=== PATIENT | female | born 1940 | race Caucasian/White ===

== ENCOUNTER 2016-11-04 06:08 | Day surgery (SDC) | payer MEDICARE ==
[2016-11-04] MEDS ORDERED: LACTATED RINGERS 1,000 ML IV ONE (06:56)
[2016-11-04] MEDS ORDERED: fentaNYL 100 MCG/2 ML VIAL IVP ONE (07:26)
[2016-11-04] MEDS ORDERED: MIDAZOLAM 2 MG/2 ML VIAL IVP ONE (07:26)
[2016-11-04 09:31] VITALS: BP 140/77
== END 2016-11-04 06:09 | disposition home or self-care (01) ==
LOC: SDS 06:08
PROVIDERS: ATTEND Surgery
PROC: 0DBE8ZZ Excision of Large Intestine, Via Natural or Artificial Opening Endoscopic (ICD-10-PCS; principal; 2016-11-04 07:30)
DX: Z87.19 Personal history of other diseases of the digestive system (principal); E11.9 Type 2 diabetes mellitus without complications; M06.9 Rheumatoid arthritis, unspecified; G47.30 Sleep apnea, unspecified; Z87.891 Personal history of nicotine dependence
CPT/HCPCS: 45380; J7120

== ENCOUNTER 2016-11-29 15:32 | Outpatient (CLI) | payer OTHER ==
[2016-11-29 16:14] LABS: BASOPHILS # (AUTO) 0.1 10^3/uL (0.0-0.1); BASOPHILS % (AUTO) 1.3 %; EOSINOPHILS # (AUTO) 0.5 10^3/uL (0.0-0.7); EOSINOPHILS % (AUTO) 4.3 %; HCT - HEMATOCRIT 39.7 % (37.0-47.0); HGB - HEMOGLOBIN 12.9 g/dL (12.0-16.0); LYMPHOCYTES # (AUTO) 1.6 10^3/uL (1.5-3.5); LYMPHOCYTES % (AUTO) 14.3 %; MEAN CORPUSCULAR HEMOGLOBIN 25.8 pg (27.0-31.0); MEAN CORPUSCULAR HGB CONC 32.6 g/dL (32.0-36.0); MEAN CORPUSCULAR VOLUME 79.3 fL (81.0-99.0); MEAN PLATELET VOLUME 7.3 fL (7.9-10.8); MONOCYTES # (AUTO) 0.7 10^3/uL (0.0-1.0); MONOCYTES % (AUTO) 6.5 %; NEUTROPHILS # (AUTO) 8.3 10^3/uL (1.5-6.6); NEUTROPHILS % (AUTO) 73.6 %; RED BLOOD COUNT 5.01 10^6/uL (4.20-5.40); RED CELL DISTRIBUTION WIDTH 15.9 % (12.0-15.0); UNCORRECTED WHITE BLOOD COUNT 11.3 x10^3/uL; WHITE BLOOD COUNT 11.3 x10^3/uL (4.8-10.8)
[2016-11-29 16:21] LABS: ALBUMIN/GLOBULIN RATIO 1.2 (1.0-2.2); BILIRUBIN,TOTAL 0.4 mg/dL (0.2-1.0); CALCIUM 9.1 mg/dL (8.5-10.3); CREATININE 0.6 mg/dL (0.4-1.0); POTASSIUM 4.1 mmol/L (3.5-5.0); TOTAL PROTEIN 7.1 g/dL (6.7-8.2)
== END 2016-11-29 15:33 | disposition home or self-care (01) ==
LOC: LAB 15:32
PROVIDERS: ATTEND Orthopaedic Surgery
DX: Z01.812 Encounter for preprocedural laboratory examination (principal); M17.11 Unilateral primary osteoarthritis, right knee
CPT/HCPCS: 36415; 80053; 85025; 87640

== ENCOUNTER 2016-12-14 07:09 | Inpatient (IN) | payer MEDICARE ==
[~2016-12-14 07:09] MED LIST: ceFAZolin 2 GM/50 ML 2 GM/50 ML BAG IV ONE
[2016-12-14] MEDS ORDERED: LACTATED RINGERS 1,000 ML IV ONE ×2 (08:16→10:34)
[2016-12-14] MEDS ORDERED: KETOROLAC 30 MG/ML VIAL IVP ONE (09:20)
[2016-12-14] MEDS ORDERED: ONDANSETRON 4 MG/2 ML VIAL IVP ONE (09:20)
[2016-12-14] MEDS ORDERED: PROPOFOL 200 MG/20 ML VIAL IVP ONE (09:20)
[2016-12-14] MEDS ORDERED: ACETAMINOPHEN 1,000 MG/100 ML 100 ML IV ONE (09:20)
[2016-12-14] MEDS ORDERED: MIDAZOLAM 2 MG/2 ML VIAL IVP ONE (09:20)
[2016-12-14] MEDS ORDERED: fentaNYL 100 MCG/2 ML VIAL IVP ONE (09:20)
[2016-12-14] MEDS ORDERED: ePHEDrine 50 MG/ML VIAL IVP ONE (09:20)
[2016-12-14] MEDS ORDERED: MORPHINE PF 5 MG/10 ML AMP EP ONE (09:20)
[2016-12-14] MEDS ORDERED: LIDOCAINE-MPF 2% 5 ML VIAL IM ONE (09:20)
[2016-12-14] MEDS ORDERED: TRANEXAMIC ACID 1,000 MG/10 ML VIAL IV ONE (09:20)
[2016-12-14] MEDS ORDERED: BUPIVACAINE 0.5% PF 30 ML VIAL INFIL ONE (09:23)
[2016-12-14] MEDS ORDERED: MORPHINE PF 10 MG/10 ML AMP SUBQ ONE (09:23)
[2016-12-14] MEDS ORDERED: ROPIVACAINE 0.2% PF 20 ML AMPULE SUBQ ONE (09:23)
[2016-12-14] MEDS ORDERED: EPINEPHrine 1 MG/ML AMP SUBQ ONE (09:23)
[2016-12-14] MEDS ORDERED: KETOROLAC 30 MG/ML VIAL IM ONE (09:26)
[2016-12-14] MEDS ORDERED: SENNA 8.6 MG TABLET PO PRN (10:59)
[2016-12-14] MEDS ORDERED: ONDANSETRON 4 MG/2 ML VIAL IVP PRN (10:59)
[2016-12-14] MEDS ORDERED: MORPHINE 2 MG/ML SYRINGE IVP PRN (10:59)
[2016-12-14] MEDS ORDERED: ACETAMINOPHEN 1,000 MG/100 ML 100 ML IV PRN (10:59)
[2016-12-14] MEDS ORDERED: BISACODYL 10 MG SUPP PR PRN (10:59)
--- NOTE | 2016-12-14 10:59 | OPERATIVE REPORT ---
Operative Report - General Admit Date: 12/14/16 Procedure Date: 12/14/16 Planned Procedure: right TKA Pre-Op Diagnosis: DJD right knee Procedure Performed: Right TKA Post Op Diagnosis: same - Procedure Note Primary Surgeon: lida Anesthesia Provider: Reji Anesthesia Technique: Combo spinal/epidural Estimated Blood Loss (mL): 80
[2016-12-14] MEDS: SODIUM CHLORIDE FLUSH 0.9% 10 ML SYRINGE IVP SCH ×2 (11:55→22:08)
[2016-12-14] MEDS: PROCHLORPERAZINE 10 MG/2 ML VIAL IVP PRN ×2 (12:24→22:08)
[2016-12-14] MEDS: SODIUM CHLORIDE 0.45% 1,000 ML IV SCH (12:29)
--- NOTE | 2016-12-14 13:10 | XRAY Report ---
TWO-VIEW RIGHT KNEE: 12/14/2016 CLINICAL INDICATION: Post-op knee replacement. COMPARISON: 07/02/2015, 10/14/2016 FINDINGS: Frontal and lateral views of the right knee demonstrate a right total knee replacement in place. There is no evidence of fracture or hardware complication. Subcutaneous gas is noted. IMPRESSION: EXPECTED POSTOPERATIVE APPEARANCE OF RIGHT KNEE REPLACEMENT. JOB #: [id number] EXT JOB #:[id number]
[2016-12-14] MEDS: ceFAZolin 2 GM/50 ML 2 GM/50 ML BAG IV SCH ×2 (15:51→23:53)
[2016-12-14] MEDS: SODIUM CHLORIDE FLUSH 0.9% 10 ML SYRINGE IVP PRN ×2 (16:37→22:08)
--- NOTE | 2016-12-14 16:45 | OPERATIVE REPORT ---
DATE OF SURGERY: 12/14/2016 00:00:00 PREOPERATIVE DIAGNOSIS: Right knee osteoarthritis. POSTOPERATIVE DIAGNOSIS: NAME OF PROCEDURE: Right total knee arthroplasty. SURGEON: Severo Lee MD ANESTHESIA: Spinal by Kofi Mendoza. INDICATIONS FOR SURGERY: The patient is a 76-year-old female with progressive osteoarthritis of her r ight knee, who had failed nonoperative treatment and presented for a total knee arthroplasty. FINDINGS AT SURGERY: The patient had diffuse degenerative arthritis of her right knee, with synovial effusion and mild synovitis of the knee joint. DESCRIPTION OF OPERATIVE PROCEDURE: The patient was taken to the operating room and was given a spina l anesthetic. Once she had been given sedation and IV antibiotics, her knee was sterilely prepped and draped in the standard fashion. The procedure was done under a tourniquet pressure of 300 mmHg. The patient's limb was exsanguinated and the tourniquet inflated. The knee was approached through a media l parapatellar incision of about 8 inches in length. The incision was deepened down to the fascial la darian, which was incised in a medial retinacular approach, exposing the intra-articular knee joint. In flexion with the knee slid to the side, the anterior horns of the menisci were able to be excised and osteophytes removed. An intramedullary hole was made in the femur for placement of a distal femoral cutting block. This cut was then made, after which the distal femur was sized to a Persona size 6 imp lant and the 4-in-1 cutting block was applied and those cuts made. The tibia was then subluxated ante riorly with excision of the ACL and most of the PCL. This exposed the plateau for a complete resectio n of the menisci. The proximal tibia cut was made with the external alignment guide and appropriate s jessy and alignment accounted for. Once the cut was made, the tibia sized to a C implant, which was th en drilled and broached for a stemmed component. Trial reduction was made off of the base plate with poly inserts most appropriate for a size 13 poly. After trial reduction was performed, the implants w ere removed. The knee was flushed and irrigated. The patella had been resected down from 22 mm down t o approximately 15, for replacement with a 29 mm diameter medialized poly component. The components w ere then sequentially cemented in place, first with the tibial base plate, followed by the femur,; th en inserting the poly, followed by cementing in of the patella. All excess cement was carefully remov ed. The cement was allowed to harden. The patient's tourniquet was then deflated, and there was very little bleeding. Injection was placed periarticular with an infusion of both local anesthetic and Tor adol diluted with saline, and this injection was diffusely placed in the knee and tolerated. Followin g this, the knee was irrigated and flushed. Cautery controlled minor bleeders. Closure was undertaken with FiberWire closure of the medial retinaculum, Vicryl closure of the subcutaneous tissue and the skin with a Monocryl running closure. Sterile dressings were applied. The patient was then taken to [facility] recovery room in stable condition. ESTIMATED BLOOD LOSS: Minimal. COMPLICATIONS: None. SPONGE AND NEEDLE COUNTS: Correct. JOB #: [id number] EXT JOB #:[id number]
[2016-12-14] MEDS: ASPIRIN 325 MG TABLET PO SCH (17:01)
[2016-12-15] MEDS: SODIUM CHLORIDE 0.45% 1,000 ML IV SCH (00:04)
[2016-12-15 05:14] LABS: HCT - HEMATOCRIT 34.9 % (37.0-47.0); HGB - HEMOGLOBIN 11.2 g/dL (12.0-16.0)
[2016-12-15 05:20] LABS: CALCIUM 8.3 mg/dL (8.5-10.3); CREATININE 0.6 mg/dL (0.4-1.0); POTASSIUM 4.5 mmol/L (3.5-5.0)
[2016-12-15] MEDS: SODIUM CHLORIDE FLUSH 0.9% 10 ML SYRINGE IVP SCH ×3 (06:02→21:36)
--- NOTE | 2016-12-15 07:37 | PROVIDER PROGRESS NOTE ---
Subjective - General Admit Date: 12/14/16 Procedure Date: 12/14/16 Post Op Days: 1 Procedure Performed: right TKA - Review of Systems Wound/Incisions: positive: Healing well Musculoskeletal: positive: Joint pain Psychiatric: positive: No symptoms Objective - Patient Data Reviewed Vital Signs: Yes Vital Signs: Vital Signs x48h Temp Pulse Resp BP Pulse Ox 12/15/16 04:55 36.4 C L 84 16 121/58 L 94 12/14/16 23:45 36.5 C 72 12 132/60 H 93 Weight: Weight 12/13/16 12/14/16 12/15/16 23:59 23:59 23:59 Weight (kg) 108 kg Intake & Output: Intake and Output Totals x24h 12/13/16 12/14/16 12/15/16 23:59 23:59 23:59 Intake Total 2000 150 Output Total 525 300 Balance 1475 -150 - Lab Results Lab Results: 12/15/16 04:52 12/15/16 04:52 Other Lab Results: Lab Results x24hrs 12/15/16 12/15/16 12/14/16 Range/Units 04:52 04:52 11:24 Hgb 11.2 L (12.0-16.0) g/dL Hct 34.9 L (37.0-47.0) % Sodium 136 (135-145) mmol/L Potassium 4.5 (3.5-5.0) mmol/L Chloride 101 (101-111) mmol/L Carbon Dioxide 26 (21-32) mmol/L Anion Gap 9.0 (6-13) BUN 28 H (6-20) mg/dL Creatinine 0.6 (0.4-1.0) mg/dL Estimated GFR (MDRD) 98 (>89) Glucose 141 H (70-100) mg/dL POC Whole Bld Glucose 133 H (70 - 100) mg/dL Calcium 8.3 L (8.5-10.3) mg/dL 12/14/16 Range/Units 08:06 Hgb (12.0-16.0) g/dL Hct (37.0-47.0) % Sodium (135-145) mmol/L Potassium (3.5-5.0) mmol/L Chloride (101-111) mmol/L Carbon Dioxide (21-32) mmol/L Anion Gap (6-13) BUN (6-20) mg/dL Creatinine (0.4-1.0) mg/dL Estimated GFR (MDRD) (>89) Glucose (70-100) mg/dL POC Whole Bld Glucose 120 H (70 - 100) mg/dL Calcium (8.5-10.3) mg/dL - Imaging Results Radiology Imaging: positive: EMP read indepedently - Current Medications Current Medications: Current Medications Generic Name Dose Route Start Last Admin Trade Name Freq PRN Reason Stop Dose Admin Aspirin 325 mg 12/14/16 17:00 12/14/16 17:01 Annamaria PO 325 mg BIDWM AGUSTÍN Administration Sodium Chloride 1,000 mls @ 100 mls/hr 12/14/16 11:00 12/15/16 00:04 Normal Saline 0.45% IV 100 mls/hr .Q10H AGUSTÍN Administration Ondansetron HCl 4 mg 12/14/16 10:59 12/14/16 16:36 Zofran Inj IVP 4 mg Q6HR PRN Administration Nausea / Vomiting Prochlorperazine Edisylate 10 mg 12/14/16 10:59 12/14/16 22:08 Compazine Inj IVP 10 mg Q6HR PRN Administration Nausea / Vomiting Sodium Chloride 10 ml 12/14/16 14:00 12/15/16 06:02 Normal Saline Flush 0.9% IVP Not Given Q8HR AGUSTÍN Sodium Chloride 10 ml 12/14/16 10:59 12/14/16 22:08 Normal Saline Flush 0.9% IVP 10 ml PRN PRN Administration NEEDED PER PROVIDER ORDERS - Physical Exam Wound/Incisions: positive: Dressing dry and intact General Appearance: positive: No acute distress Skin: positive: Warm, Dry Extremities: positive: Joint swelling Neurologic/Psychiatric: positive: Oriented x3, CN's nml (2-12), Motor nml, Sensation nml, Mood/affect nml Impression/Plan - Problem List Problem List: POD #1 Pt is progressing well with minimal pain, no nausea. Ready for PT to begin. Will sit at bedside, and begin walker use.
[2016-12-15] MEDS: oxyCOD/ACETAMIN 5 MG/325 MG TABLET PO PRN ×4 (08:43→20:33)
[2016-12-15] MEDS: ASPIRIN 325 MG TABLET PO SCH ×2 (10:24→10:28)
[2016-12-15] MEDS: ACETAMINOPHEN 325 MG TABLET PO PRN ×2 (10:24→15:40)
[2016-12-15] MEDS: SENNA 8.6 MG TABLET PO SCH (14:53)
[2016-12-15] MEDS: DOCUSATE SODIUM 250 MG CAPSULE PO SCH (14:53)
[2016-12-15] MEDS ORDERED: DOCUSATE SODIUM 250 MG CAPSULE PO ONE (14:56)
[2016-12-15] MEDS ORDERED: SENNA 8.6 MG TABLET ONE (14:56)
[2016-12-16] MEDS: oxyCOD/ACETAMIN 5 MG/325 MG TABLET PO PRN ×6 (00:55→22:33)
[2016-12-16] MEDS: SODIUM CHLORIDE FLUSH 0.9% 10 ML SYRINGE IVP SCH ×3 (05:14→21:16)
[2016-12-16] MEDS ORDERED: DOCUSATE SODIUM 250 MG CAPSULE PO SCH (09:00)
[2016-12-16] MEDS ORDERED: SENNA 8.6 MG TABLET PO SCH (09:00)
[2016-12-16] MEDS: DOCUSATE SODIUM 250 MG CAPSULE PO SCH (09:29)
[2016-12-16] MEDS: SENNA 8.6 MG TABLET PO SCH (09:30)
--- NOTE | 2016-12-16 10:20 | PROVIDER PROGRESS NOTE ---
Subjective - General Admit Date: 12/14/16 Procedure Date: 12/14/16 Post Op Days: 2 Procedure Performed: right TKA - Review of Systems Wound/Incisions: positive: Dressing dry and intact Gastrointestinal: positive: No symptoms Genitourinary: positive: No symptoms Musculoskeletal: positive: Joint pain Psychiatric: positive: No symptoms Objective - Patient Data Reviewed Vital Signs: Yes Vital Signs: Vital Signs x48h Temp Pulse Resp BP Pulse Ox 12/16/16 08:32 36.9 C 81 18 156/72 H 96 12/16/16 05:00 37.7 C H 88 18 157/67 H 94 Weight: Weight 12/14/16 12/15/16 12/16/16 23:59 23:59 23:59 Weight (kg) 108 kg Intake & Output: Intake and Output Totals x24h 12/14/16 12/15/16 12/16/16 23:59 23:59 23:59 Intake Total 1999 2888 750 Output Total 525 300 1 Balance 5124 5770 749 - Lab Results Lab Results: 12/15/16 04:52 12/15/16 04:52 - Current Medications Current Medications: Current Medications Generic Name Dose Route Start Last Admin Trade Name Freq PRN Reason Stop Dose Admin Acetaminophen 650 - 975 mg 12/14/16 10:59 12/15/16 15:40 Tylenol PO 650 mg Q4HR PRN Administration PAIN Docusate Sodium 250 - 500 mg 12/15/16 14:49 12/16/16 09:29 Colace 250mg Capsule PO 500 mg DAILY AGUSTÍN Administration Ondansetron HCl 4 mg 12/14/16 10:59 12/14/16 16:36 Zofran Inj IVP 4 mg Q6HR PRN Administration Nausea / Vomiting Oxycodone/Acetaminophen 1 tab 12/14/16 10:59 12/16/16 09:30 Percocet 5 Mg/325 Mg PO 1 tab Q4HR PRN Administration PAIN Prochlorperazine Edisylate 10 mg 12/14/16 10:59 12/14/16 22:08 Compazine Inj IVP 10 mg Q6HR PRN Administration Nausea / Vomiting Senna 8.6 - 17.2 mg 12/15/16 14:49 12/16/16 09:30 Senokot PO 17.2 mg DAILY AGUSTÍN Administration Sodium Chloride 10 ml 12/14/16 14:00 12/16/16 05:14 Normal Saline Flush 0.9% IVP Not Given Q8HR AGUSTÍN Sodium Chloride 10 ml 12/14/16 10:59 12/14/16 22:08 Normal Saline Flush 0.9% IVP 10 ml PRN PRN Administration NEEDED PER PROVIDER ORDERS - Physical Exam Wound/Incisions: positive: Dressing dry and intact General Appearance: positive: No acute distress Respiratory: positive: No respiratory distress Abdomen: positive: Non-tender Skin: positive: Color nml, No rash Neurologic/Psychiatric: positive: Motor nml, Sensation nml, Mood/affect nml Impression/Plan - Problem List Problem List: POD #2 Pt is doing well with decreasing pain. Plan more PT today. The Pt is advised by her eye DrMarisol to avoid any type of Anticoagulant. Will have to mobilize, and use mechanical measures (foot pumps).
[2016-12-16] MEDS: ACETAMINOPHEN 325 MG TABLET PO PRN (11:47)
[2016-12-17] MEDS: ACETAMINOPHEN 325 MG TABLET PO PRN (00:43)
[2016-12-17] MEDS: oxyCOD/ACETAMIN 5 MG/325 MG TABLET PO PRN ×2 (04:09→08:50)
[2016-12-17] MEDS: SODIUM CHLORIDE FLUSH 0.9% 10 ML SYRINGE IVP SCH (07:03)
--- NOTE | 2016-12-17 07:24 | Discharge Plan ---
Discharge Plan Disposition: 01 Home, Self Care Condition: Good Prescriptions: oxyCODONE/ACET 5/325 [Percocet 5 mg/325 mg] 1 tab PO Q4HR PRN #30 tablet PRN Reason: Pain Bisacodyl Supp [Dulcolax Supp] 10 mg VT Q12H PRN #10 supp PRN Reason: Constipation Senna [Senokot] 8.6 - 17.2 mg PO DAILY #20 tablet Diet: Regular Activity Restrictions: walker use Shower Restrictions: Yes (knee covered. shower chair) Driving Restrictions: Yes (no driving) Assistance Devices: Walker Weight Bearing: Full Weight Follow-Up Care: Outpatient Rehab - PT (referral in place for next week) No Smoking: If you smoke, Please STOP! Call for help. Follow-up with: Luis A Wakefield DO [Primary Care Provider] - Severo Lee MD [Provider Admit Priv/Credential] -
[2016-12-17] MEDS: DOCUSATE SODIUM 250 MG CAPSULE PO SCH (08:50)
[2016-12-17 08:51] VITALS: BP 154/83
[2016-12-17] MEDS: SENNA 8.6 MG TABLET PO SCH (08:51)
== END 2016-12-17 09:35 | disposition home or self-care (01) | DRG 470 ==
LOC: MS2 07:09
PROVIDERS: ADMIT Orthopaedic Surgery; ATTEND Orthopaedic Surgery
PROC: 0SRC069 Replacement of Right Knee Joint with Oxidized Zirconium on Polyethylene Synthetic Substitute, Cemented, Open Approach (ICD-10-PCS; principal; 2016-12-14 08:30)
DX: M17.11 Unilateral primary osteoarthritis, right knee (principal); Z68.41 Body mass index [BMI] 40.0-44.9, adult; I10 Essential (primary) hypertension; E66.9 Obesity, unspecified; E11.9 Type 2 diabetes mellitus without complications; M06.9 Rheumatoid arthritis, unspecified; G47.30 Sleep apnea, unspecified; H35.30 Unspecified macular degeneration; E78.5 Hyperlipidemia, unspecified; I34.1 Nonrheumatic mitral (valve) prolapse; Z87.19 Personal history of other diseases of the digestive system
CPT/HCPCS: 36415; 80048; 85014; 85018

== ENCOUNTER 2017-05-19 10:03 | Outpatient (CLI) | payer MEDICARE ==
[2017-05-19 10:22] LABS: BASOPHILS % (AUTO) 0.4 %; EOSINOPHILS # (AUTO) 0.2 10^3/uL (0.0-0.7); EOSINOPHILS % (AUTO) 1.4 %; HGB - HEMOGLOBIN 12.4 g/dL (12.0-16.0); LYMPHOCYTES # (AUTO) 1.3 10^3/uL (1.5-3.5); LYMPHOCYTES % (AUTO) 11.7 %; MEAN CORPUSCULAR HEMOGLOBIN 24.7 pg (27.0-31.0); MEAN CORPUSCULAR HGB CONC 32.3 g/dL (32.0-36.0); MEAN CORPUSCULAR VOLUME 76.4 fL (81.0-99.0); MEAN PLATELET VOLUME 7.2 fL (7.9-10.8); MONOCYTES # (AUTO) 0.5 10^3/uL (0.0-1.0); MONOCYTES % (AUTO) 4.4 %; NEUTROPHILS # (AUTO) 9.1 10^3/uL (1.5-6.6); NEUTROPHILS % (AUTO) 82.1 %; PLT - PLATELET COUNT 341 10^3/uL (130-450); RED BLOOD COUNT 5.03 10^6/uL (4.20-5.40); RED CELL DISTRIBUTION WIDTH 15.8 % (12.0-15.0); WHITE BLOOD COUNT 11.1 x10^3/uL (4.8-10.8)
[2017-05-19 10:34] LABS: ALBUMIN 3.7 g/dL (3.2-5.5); ALBUMIN/GLOBULIN RATIO 1.3 (1.0-2.2); BILIRUBIN,TOTAL 0.6 mg/dL (0.2-1.0); CALCIUM 8.5 mg/dL (8.5-10.3); CREATININE 0.6 mg/dL (0.4-1.0); TOTAL PROTEIN 6.6 g/dL (6.7-8.2)
[2017-05-19 10:42] LABS: HB2 TOTAL 13.6 g/dL; HEMOGLOBIN A1C 0.78 g/dL; HEMOGLOBIN A1C % 7.4 % (4.6-6.2)
[2017-05-21 18:47] LABS: ANA SCREEN POSITIVE (NEGATIVE)
== END 2017-05-19 10:04 | disposition home or self-care (01) ==
LOC: LAB 10:03
PROVIDERS: ATTEND Physician Assistant
DX: L29.8 Other pruritus (principal); I83.10 Varicose veins of unspecified lower extremity with inflammation; D48.5 Neoplasm of uncertain behavior of skin; Z71.89 Other specified counseling; Z79.899 Other long term (current) drug therapy
CPT/HCPCS: 36415; 80053; 83036; 85025; 86038; 86039

== ENCOUNTER 2017-08-30 06:45 | Outpatient (CLI) | payer MEDICARE ==
[2017-08-30 07:21] LABS: BASOPHILS % (AUTO) 0.1 %; EOSINOPHILS # (AUTO) 0.3 10^3/uL (0.0-0.7); EOSINOPHILS % (AUTO) 3.5 %; HGB - HEMOGLOBIN 12.8 g/dL (12.0-16.0); LYMPHOCYTES # (AUTO) 2.2 10^3/uL (1.5-3.5); LYMPHOCYTES % (AUTO) 22.4 %; MEAN CORPUSCULAR HEMOGLOBIN 25.2 pg (27.0-31.0); MEAN CORPUSCULAR HGB CONC 33.2 g/dL (32.0-36.0); MEAN CORPUSCULAR VOLUME 75.9 fL (81.0-99.0); MEAN PLATELET VOLUME 7.8 fL (7.9-10.8); MONOCYTES # (AUTO) 0.6 10^3/uL (0.0-1.0); MONOCYTES % (AUTO) 6.2 %; NEUTROPHILS # (AUTO) 6.5 10^3/uL (1.5-6.6); NEUTROPHILS % (AUTO) 67.8 %; PLT - PLATELET COUNT 363 10^3/uL (130-450); RED BLOOD COUNT 5.08 10^6/uL (4.20-5.40); RED CELL DISTRIBUTION WIDTH 16.3 % (12.0-15.0); WHITE BLOOD COUNT 9.6 x10^3/uL (4.8-10.8)
[2017-08-30 07:30] LABS: ALBUMIN 3.8 g/dL (3.2-5.5); ALBUMIN/GLOBULIN RATIO 1.2 (1.0-2.2); ALKALINE PHOSPHATASE 77 IU/L (42-121); ALT ALANINE AMINOTRANSFERASE 25 IU/L (10-60); AST ASPARTATE AMINOTRANSFERASE 20 IU/L (10-42); BILIRUBIN,TOTAL 0.3 mg/dL (0.2-1.0); BUN - BLOOD UREA NITROGEN 18 mg/dL (6-20); CALCIUM 9.3 mg/dL (8.5-10.3); CARBON DIOXIDE - CO2 25 mmol/L (21-32); CHLORIDE 101 mmol/L (101-111); CHOL/HDL RATIO 3.3 (<4.4); CHOLESTEROL 212 mg/dL; CREATININE 0.7 mg/dL (0.4-1.0); GFR - MDRD 82 (>89); GLUCOSE 157 mg/dL (70-100); HDL CHOLESTEROL 65 mg/dL; LDL CHOLESTEROL,CALCULATED 129 mg/dL; SODIUM 135 mmol/L (135-145); TOTAL PROTEIN 7.1 g/dL (6.7-8.2); VLDL CHOLESTEROL 18 mg/dL
[2017-08-30 08:09] LABS: HB2 TOTAL 12.5 g/dL; HEMOGLOBIN A1C 0.71 g/dL; HEMOGLOBIN A1C % 7.3 % (4.6-6.2)
== END 2017-08-30 06:46 | disposition home or self-care (01) ==
LOC: LAB 06:45
PROVIDERS: ATTEND Family Medicine
DX: I10 Essential (primary) hypertension (principal); E11.9 Type 2 diabetes mellitus without complications; E78.5 Hyperlipidemia, unspecified
CPT/HCPCS: 36415; 80053; 80061; 83036; 83721; 84443; 85025

== ENCOUNTER 2017-11-23 08:27 | Outpatient (CLI) | payer MEDICARE ==
--- NOTE | 2017-11-24 16:08 | Mammography Report ---
Reason: SCREENING MAMMO Procedure Date: 11/23/2017 Accession Number: [id number] / [id number] Procedure: [facility] - Screening Mammo w/Scott CPT Code: FULL RESULT: EXAM: Screening Mammo w/Scott DATE: 11/23/2017 9:12 AM CLINICAL HISTORY: Nulliparous patient for routine screening. History of benign biopsies. TECHNIQUE: Bilateral CC and MLO views were obtained. COMPARISON: 01/21/2016, 02/06/2015, 02/01/2014, 12/16/2012 and 03/30/2012 FINDINGS: The breast tissue is heterogeneously dense. Subareolar nodular densities on the left are unchanged compared with priors. No new suspicious masses, clustered microcalcifications, or regions of architectural distortion are identified. IMPRESSION: Benign findings RECOMMENDATION: Routine annual screening unless otherwise clinically indicated. BIRADS CATEGORY 2: Benign findings STANDARD QUALIFYING STATEMENTS: 1. This examination was not reviewed with the aid of Computer-Aided Detection (CAD). 2. A negative or benign imaging report should not delay biopsy if clinically suspicious findings are present. Consider surgical consultation if warrented. More than 5% of cancers are not identified by imaging. 3. Dense breasts may obscure an underlying neoplasm. 4. This examination was reviewed the aid of 3D breast imaging (tomosynthesis).
== END 2017-11-23 08:28 | disposition home or self-care (01) ==
LOC: DI 08:27
DX: Z12.31 Encounter for screening mammogram for malignant neoplasm of breast (principal)
CPT/HCPCS: 77063; 77067

== ENCOUNTER 2018-03-06 08:16 | Outpatient (CLI) | payer MEDICARE ==
[2018-03-06 09:19] LABS: ALBUMIN 3.5 g/dL (3.2-5.5); ALBUMIN/GLOBULIN RATIO 1.1 (1.0-2.2); ALKALINE PHOSPHATASE 83 IU/L (42-121); ALT ALANINE AMINOTRANSFERASE 26 IU/L (10-60); AST ASPARTATE AMINOTRANSFERASE 20 IU/L (10-42); BILIRUBIN,TOTAL 0.5 mg/dL (0.2-1.0); BUN - BLOOD UREA NITROGEN 17 mg/dL (6-20); CALCIUM 8.6 mg/dL (8.5-10.3); CARBON DIOXIDE - CO2 28 mmol/L (21-32); CHLORIDE 100 mmol/L (101-111); CHOL/HDL RATIO 2.9 (<4.4); CHOLESTEROL 163 mg/dL; CREATININE 0.6 mg/dL (0.4-1.0); GFR - MDRD 97 (>89); GLUCOSE 183 mg/dL (70-100); HDL CHOLESTEROL 56 mg/dL; LDL CHOLESTEROL,CALCULATED 89 mg/dL; LDL/HDL RATIO 1.6 (<4.4); SODIUM 136 mmol/L (135-145); TOTAL PROTEIN 6.7 g/dL (6.7-8.2); VLDL CHOLESTEROL 18 mg/dL
[2018-03-06 09:27] LABS: HB2 TOTAL 12.6 g/dL; HEMOGLOBIN A1C 0.79 g/dL; HEMOGLOBIN A1C % 7.9 % (4.6-6.2)
== END 2018-03-06 08:17 | disposition home or self-care (01) ==
LOC: LAB 08:16
PROVIDERS: ATTEND Family Medicine
DX: E11.9 Type 2 diabetes mellitus without complications (principal)
CPT/HCPCS: 36415; 80053; 80061; 83036; 83721

== ENCOUNTER 2018-06-07 06:37 | Outpatient (CLI) | payer MEDICARE ==
[2018-06-07 07:13] LABS: ALBUMIN 3.6 g/dL (3.2-5.5); ALBUMIN/GLOBULIN RATIO 1.1 (1.0-2.2); ALKALINE PHOSPHATASE 72 IU/L (42-121); ALT ALANINE AMINOTRANSFERASE 29 IU/L (10-60); AST ASPARTATE AMINOTRANSFERASE 22 IU/L (10-42); BILIRUBIN,TOTAL 0.5 mg/dL (0.2-1.0); BUN - BLOOD UREA NITROGEN 21 mg/dL (6-20); CALCIUM 8.8 mg/dL (8.5-10.3); CARBON DIOXIDE - CO2 25 mmol/L (21-32); CHLORIDE 100 mmol/L (101-111); CHOL/HDL RATIO 2.9 (<4.4); CHOLESTEROL 187 mg/dL; CREATININE 0.6 mg/dL (0.4-1.0); GFR - MDRD 97 (>89); GLUCOSE 169 mg/dL (70-100); HDL CHOLESTEROL 64 mg/dL; LDL CHOLESTEROL,CALCULATED 103 mg/dL; LDL/HDL RATIO 1.6 (<4.4); SODIUM 136 mmol/L (135-145); TOTAL PROTEIN 6.8 g/dL (6.7-8.2); VLDL CHOLESTEROL 20 mg/dL
[2018-06-07 07:50] LABS: HB2 TOTAL 14.2 g/dL; HEMOGLOBIN A1C 0.78 g/dL; HEMOGLOBIN A1C % 7.2 % (4.6-6.2)
[2018-06-07 08:56] LABS: CREATININE,URINE 48.7 mg/dL; MICROALBUM/CREATININE RATIO,UR 8.2 ug/mg (<30.0); MICROALBUMIN,URINE 0.4 mg/dL (0-300.0)
== END 2018-06-07 06:38 | disposition home or self-care (01) ==
LOC: LAB 06:37
PROVIDERS: ATTEND Family Medicine
DX: E11.9 Type 2 diabetes mellitus without complications (principal)
CPT/HCPCS: 36415; 80053; 80061; 82043; 82570; 83036; 83721

== ENCOUNTER 2018-06-14 08:00 | Outpatient (CLI) | payer MEDICARE | END 2018-06-14 23:59 | disposition home or self-care (01) | LOC: LAB.WCP 08:00 | PROVIDERS: ATTEND Family Medicine | DX: Z13.89 Encounter for screening for other disorder (principal) | CPT/HCPCS: 36415; 86765 ==

== ENCOUNTER 2018-08-28 11:08 | Outpatient (CLI) | payer MEDICARE | END 2018-08-28 11:09 | disposition home or self-care (01) | LOC: SC 11:08 | PROVIDERS: ATTEND Nurse Practitioner Family | DX: G47.33 Obstructive sleep apnea (adult) (pediatric) (principal) | CPT/HCPCS: 99214; G0463; 99212 ==

== ENCOUNTER 2018-12-04 07:14 | Outpatient (CLI) | payer MEDICARE ==
[2018-12-04 07:57] LABS: CALCIUM 8.8 mg/dL (8.5-10.3); CREATININE 0.6 mg/dL (0.4-1.0)
[2018-12-04 08:20] LABS: HB2 TOTAL 13.2 g/dL; HEMOGLOBIN A1C 0.75 g/dL; HEMOGLOBIN A1C % 7.3 % (4.6-6.2)
== END 2018-12-04 07:15 | disposition home or self-care (01) ==
LOC: LAB 07:14
PROVIDERS: ATTEND Family Medicine
DX: E11.9 Type 2 diabetes mellitus without complications (principal)
CPT/HCPCS: 36415; 80048; 83036

== ENCOUNTER 2018-12-06 10:09 | Outpatient (CLI) | payer MEDICARE ==
--- NOTE | 2018-12-08 10:46 | Mammography Report ---
Reason: ROUTINE MAMMO Procedure Date: 12/06/2018 Accession Number: [id number] / [id number] Procedure: [facility] - Screening Mammo w/Scott CPT Code: Final Report FULL RESULT: EXAM: Screening Mammo w/Scott DATE: 12/06/2018 10:50 AM CLINICAL HISTORY: Nulliparous patient. Routine screening. History of benign breast biopsies. TECHNIQUE: (B) - Bilateral CC and MLO views were obtained. COMPARISON: 11/23/2017, 01/21/2016, 02/06/2015, 02/01/2014, 12/16/2012, 03/30/2012, 09/14/2011, 08/31/2011 and 01/27/2009 PARENCHYMAL PATTERN: (D) - The breasts demonstrate heterogeneously dense fibroglandular parenchyma bilaterally. FINDINGS: No significant interval change on the left. There are no suspicious masses, calcifications, or areas of distortion. Scattered nodular densities are stable. On the right there is a potential developing density in the posterior superior breast seen on the MLO projection only. Suggest further evaluation by spot compression, true lateral, and rotated CC projections. The right breast is otherwise stable. IMPRESSION: Incomplete examination. BI-RADS category 0. Needs additional views right breast. Negative left breast. RECOMMENDATION: (ADDMAM) - Recommend additional mammographic views. Right breast BI-RADS CATEGORY: (0) - Incomplete Examination - need additional evaluation. STANDARD QUALIFYING STATEMENTS: 1. This examination was not reviewed with the aid of Computer-Aided Detection (CAD). 2. A negative or benign imaging report should not preclude biopsy if clinically suspicious findings are present. 3. Dense breasts may obscure an underlying neoplasm. 4. This examination was reviewed with the aid of 3D breast imaging (tomosynthesis).
== END 2018-12-06 10:10 | disposition home or self-care (01) ==
LOC: DI 10:09
DX: Z12.31 Encounter for screening mammogram for malignant neoplasm of breast (principal); R92.8 Other abnormal and inconclusive findings on diagnostic imaging of breast
CPT/HCPCS: 77063; 77067

== ENCOUNTER 2019-01-22 10:29 | Outpatient (CLI) | payer MEDICARE ==
--- NOTE | 2019-01-22 11:41 | Mammography Report ---
Reason: ABNORMAL MAMMOGRAM Procedure Date: 01/22/2019 Accession Number: [id number] / [id number] Procedure: [facility] - Diagnostic Dig RT CPT Code: Final Report FULL RESULT: EXAM: Diagnostic Dig RT DATE: 01/22/2019 11:29 AM CLINICAL HISTORY: Follow-up abnormal mammogram 12/06/2018 TECHNIQUE: (R) - Right CC and MLO views were obtained. COMPARISON: 12/06/2018 PARENCHYMAL PATTERN: (A) - The breast demonstrates scattered fibroglandular densities. FINDINGS: The area of asymmetric density previously described in the superior right breast does not persist on additional views. No ultrasound is performed. IMPRESSION: Negative examination. BI-RADS category 1. RECOMMENDATION: (ANNUAL) - Recommend routine annual screening mammography. BI-RADS CATEGORY: (1) - Negative. STANDARD QUALIFYING STATEMENTS: 1. This examination was not reviewed with the aid of Computer-Aided Detection (CAD). 2. A negative or benign imaging report should not preclude biopsy if clinically suspicious findings are present. 3. Dense breasts may obscure an underlying neoplasm. 4. This examination was reviewed with the aid of 3D breast imaging (tomosynthesis).
== END 2019-01-22 10:30 | disposition home or self-care (01) ==
LOC: DI 10:29
PROVIDERS: ATTEND Family Medicine
DX: R92.8 Other abnormal and inconclusive findings on diagnostic imaging of breast (principal)

== ENCOUNTER 2019-06-04 07:18 | Outpatient (CLI) | payer MEDICARE ==
[2019-06-04 07:48] LABS: ALBUMIN 3.8 g/dL (3.2-5.5); ALBUMIN/GLOBULIN RATIO 1.1 (1.0-2.2); ALKALINE PHOSPHATASE 81 IU/L (42-121); ALT ALANINE AMINOTRANSFERASE 27 IU/L (10-60); AST ASPARTATE AMINOTRANSFERASE 21 IU/L (10-42); BILIRUBIN,TOTAL 0.7 mg/dL (0.2-1.0); BUN - BLOOD UREA NITROGEN 18 mg/dL (6-20); CALCIUM 8.7 mg/dL (8.5-10.3); CARBON DIOXIDE - CO2 27 mmol/L (21-32); CHLORIDE 100 mmol/L (101-111); CHOL/HDL RATIO 3.9 (<4.4); CHOLESTEROL 209 mg/dL; CREATININE 0.6 mg/dL (0.4-1.0); GLUCOSE 173 mg/dL (70-100); HB2 TOTAL 13.5 g/dL; HDL CHOLESTEROL 53 mg/dL; HEMOGLOBIN A1C % 8.9 % (4.6-6.2); LDL CHOLESTEROL,CALCULATED 135 mg/dL; LDL/HDL RATIO 2.5 (<4.4); SODIUM 136 mmol/L (135-145); TOTAL PROTEIN 7.2 g/dL (6.7-8.2); VLDL CHOLESTEROL 21 mg/dL
== END 2019-06-04 07:19 | disposition home or self-care (01) ==
LOC: LAB 07:18
PROVIDERS: ATTEND Family Medicine
DX: E11.9 Type 2 diabetes mellitus without complications (principal)
CPT/HCPCS: 36415; 80053; 80061; 83036; 83721

== ENCOUNTER 2020-03-19 14:00 | Outpatient (CLI) | payer MEDICARE ==
--- NOTE | 2020-03-20 09:33 | Mammography Report ---
BILATERAL DIGITAL SCREENING MAMMOGRAM 3D/2D: 03/19/2020 CLINICAL: Routine screening. Comparison is made to exams dated: 01/22/2019 mammogram, 12/06/2018 mammogram, 11/23/2017 mammogram, and 01/21/2016 mammogram - [facility]. The tissue of both breasts is predominantl y fatty. There is a 1 cm asymmetry with an indistinct margin in the right breast anterior depth lateral region seen on the craniocaudal view only. This is less prominent. No other significant masses, calcifications, or other findings are seen in either breast. IMPRESSION: INCOMPLETE: NEEDS ADDITIONAL IMAGING EVALUATION The 1 cm asymmetry in the right breast is indeterminate. Additional views with possible ultrasound a re recommended. This exam was interpreted at Station ID: [id number]. NOTE: For mammograms, a report in lay terms will be sent to the patient. Approximately 15% of breast malignancies will not be visualized mammographically. In the management of a palpable breast mass, a negative mammogram must not discourage biopsy of a clinically suspicious lesion. Electronically Signed By: Ben Vanegas acr/:03/19/2020 15:35:38 ACR BI-RADS Category 0: Incomplete 3340F PARENCHYMAL PATTERN: (F) - The breast(s) demonstrate(s) diffuse fatty replacement. BI-RADS CATEGORY: (0) - 0 Mammo and [place] [id number] Immediate follow-up LATERALITY: (R)
== END 2020-03-19 14:01 | disposition home or self-care (01) ==
LOC: DI 14:00
DX: Z12.31 Encounter for screening mammogram for malignant neoplasm of breast (principal); R92.8 Other abnormal and inconclusive findings on diagnostic imaging of breast

== ENCOUNTER 2020-04-03 07:43 | Outpatient (CLI) | payer MEDICARE ==
[2020-04-03 08:07] LABS: BASOPHILS # (AUTO) 0.1 10^3/uL (0.0-0.1); EOSINOPHILS # (AUTO) 0.3 10^3/uL (0.0-0.7); EOSINOPHILS % (AUTO) 3.3 %; HGB - HEMOGLOBIN 13.7 g/dL (12.0-16.0); LYMPHOCYTES # (AUTO) 1.8 10^3/uL (1.5-3.5); LYMPHOCYTES % (AUTO) 17.9 %; MEAN CORPUSCULAR HEMOGLOBIN 24.8 pg (27.0-31.0); MEAN CORPUSCULAR VOLUME 80.1 fL (81.0-99.0); MEAN PLATELET VOLUME 9.6 fL (7.9-10.8); MONOCYTES # (AUTO) 0.6 10^3/uL (0.0-1.0); MONOCYTES % (AUTO) 6.3 %; NEUTROPHILS # (AUTO) 7.1 10^3/uL (1.5-6.6); NEUTROPHILS % (AUTO) 70.8 %; PLT - PLATELET COUNT 382 10^3/uL (130-450); RED BLOOD COUNT 5.52 10^6/uL (4.20-5.40); RED CELL DISTRIBUTION WIDTH 14.7 % (12.0-15.0)
[2020-04-03 08:21] LABS: ALBUMIN/GLOBULIN RATIO 1.1 (1.0-2.2); ALKALINE PHOSPHATASE 85 IU/L (42-121); ALT ALANINE AMINOTRANSFERASE 44 IU/L (10-60); AST ASPARTATE AMINOTRANSFERASE 34 IU/L (10-42); BILIRUBIN,TOTAL 0.6 mg/dL (0.2-1.0); BUN - BLOOD UREA NITROGEN 17 mg/dL (6-20); CALCIUM 9.3 mg/dL (8.5-10.3); CARBON DIOXIDE - CO2 24 mmol/L (21-32); CHLORIDE 99 mmol/L (101-111); CHOL/HDL RATIO 3.5 (<4.4); CHOLESTEROL 236 mg/dL; CREATININE 0.6 mg/dL (0.4-1.0); GLUCOSE 181 mg/dL (70-100); HDL CHOLESTEROL 68 mg/dL; LDL CHOLESTEROL,CALCULATED 148 mg/dL; LDL/HDL RATIO 2.2 (<4.4); TOTAL PROTEIN 7.6 g/dL (6.7-8.2); VLDL CHOLESTEROL 20 mg/dL
[2020-04-03 08:26] LABS: CREATININE,URINE 25.5 mg/dL; MICROALBUM/CREATININE RATIO,UR 7.8 ug/mg (<30.0); MICROALBUMIN,URINE 0.2 mg/dL (0-300.0)
[2020-04-03 12:30] LABS: HEMOGLOBIN A1c% 7.9 % (4.27-6.07)
== END 2020-04-03 07:44 | disposition home or self-care (01) ==
LOC: LAB 07:43
PROVIDERS: ATTEND Family Medicine
DX: E11.9 Type 2 diabetes mellitus without complications (principal)
CPT/HCPCS: 36415; 80053; 80061; 82043; 82570; 83036; 83721; 84443; 85025

== ENCOUNTER 2020-04-16 09:17 | Outpatient (CLI) | payer MEDICARE ==
--- NOTE | 2020-04-17 13:25 | Mammography Report ---
UNILATERAL RIGHT DIGITAL DIAGNOSTIC MAMMOGRAM 3D/2D: 04/16/2020 CLINICAL: Patient returns today to evaluate a focal asymmetry in the right breast. Additional evaluat ion requested from prior study. Comparison is made to exams dated: 03/19/2020 mammogram, 01/22/2019 mammogram, 12/06/2018 mammogram, 11/23/2017 mammogram, 01/21/2016 mammogram, and 02/01/2014 mammogram - [facility]. The tissue of right breast is predominantly fatty. There is a 1 cm asymmetry with an indistinct margin in the right breast anterior depth lateral region seen on the craniocaudal view only. This is more prominent. No other significant masses or calcifications are seen in the breast. IMPRESSION: INCOMPLETE: NEEDS ADDITIONAL IMAGING EVALUATION The 1 cm asymmetry in the right breast is indeterminate. An ultrasound is recommended and has been s cheduled to immediately follow. This exam was interpreted at Station ID: [id number]. NOTE: For mammograms, a report in lay terms will be sent to the patient. Approximately 15% of breast malignancies will not be visualized mammographically. In the management of a palpable breast mass, a negative mammogram must not discourage biopsy of a clinically suspicious lesion. Electronically Signed By: Tremayne Lawton M.D. jr/:04/16/2020 10:37:09 ACR BI-RADS Category 0: Incomplete 3340F PARENCHYMAL PATTERN: (F) - The breast(s) demonstrate(s) diffuse fatty replacement. BI-RADS CATEGORY: (0) - 0 Ultrasound [id number] Immediate follow-up LATERALITY: (B)
--- NOTE | 2020-04-17 13:26 | Ultrasound Report ---
LIMITED ULTRASOUND OF RIGHT BREAST: 04/16/2020 CLINICAL: Patient returns today to evaluate a focal asymmetry in the right breast. Comparison is made to exams dated: 04/16/2020 mammogram, 03/19/2020 mammogram, 01/22/2019 mammogram, 1 mammogram, 11/23/2017 mammogram, and 01/21/2016 mammogram - [facility]. Color flow ultrasound of the right breast 9 o'clock region was performed. Guzman scale images of the r eal-time examination were reviewed. There is a 1.1 cm x 1 cm irregular mass with an angular margin in the right breast at 9 o'clock anter ior depth 3 cm from the nipple. This irregular mass is hypoechoic. IMPRESSION: SUSPICIOUS OF MALIGNANCY The 1.1 cm x 1 cm irregular mass in the right breast is suspicious of malignancy. An ultrasound guid ed biopsy is recommended. This exam was interpreted at Station ID: [id number]. Electronically Signed By: Tremayne Lawton M.D. jr/:04/16/2020 10:38:54 Ultrasound BI-RADS: 4 Suspicious for malignancy BI-RADS CATEGORY: (4) - 4 None [id number] Immediate follow-up LATERALITY: ()
== END 2020-04-16 09:18 | disposition home or self-care (01) ==
LOC: DI 09:17
PROVIDERS: ATTEND Family Medicine
DX: R92.8 Other abnormal and inconclusive findings on diagnostic imaging of breast (principal); N63.15 Unspecified lump in the right breast, overlapping quadrants

== ENCOUNTER 2020-04-24 09:16 | Outpatient (CLI) | payer MEDICARE ==
[~2020-04-24 09:16] MED LIST changes: +BUFFERED LIDOCAINE 10 ML SYRINGE ONE; +LIDOCAINE 1%-EPI 1:100000 20 ML MDV ONE; -ceFAZolin 2 GM/50 ML 2 GM/50 ML BAG IV ONE
[2020-04-24] MEDS ORDERED: BUFFERED LIDOCAINE 10 ML SYRINGE IU ONE (14:29)
[2020-04-24] MEDS ORDERED: LIDOCAINE 1%-EPI 1:100000 20 ML MDV SUBQ ONE (14:29)
--- NOTE | 2020-04-25 08:41 | Mammography Report ---
UNILATERAL RIGHT DIGITAL DIAGNOSTIC MAMMOGRAM 3D/2D: 04/24/2020 CLINICAL: Post right breast ultrasound biopsy clip placement imaging. Comparison is made to exam dated: 04/16/2020 ultrasound - [facility]. The tissue o f right breast is predominantly fatty. There is a marker clip in the appropriate position in the right breast at 8 o'clock anterior depth 3 cm from the nipple. This marker clip placement is at the biopsy site. IMPRESSION: POST PROCEDURE MAMMOGRAM FOR MARKER PLACEMENT There was a successful marker clip placement in the right breast anterior depth. This exam was interpreted at Station ID: [id number]. NOTE: For mammograms, a report in lay terms will be sent to the patient. Approximately 15% of breast malignancies will not be visualized mammographically. In the management of a palpable breast mass, a negative mammogram must not discourage biopsy of a clinically suspicious lesion. Electronically Signed By: Tremayne Lawton M.D., jr/penrad:04/25/2020 08:24:26 ACR BI-RADS Category Post-procedure mammogram for marker placement PARENCHYMAL PATTERN: (F) - The breast(s) demonstrate(s) diffuse fatty replacement. BI-RADS CATEGORY: () - Unspecified - other recall n/a LATERALITY: (B)
== END 2020-04-24 09:17 | disposition home or self-care (01) ==
LOC: DI 09:16
PROVIDERS: ATTEND Family Medicine
DX: C50.511 Malignant neoplasm of lower-outer quadrant of right female breast (principal); Z17.1 Estrogen receptor negative status [ER-]
CPT/HCPCS: 19083

== ENCOUNTER 2020-05-30 15:05 | Outpatient (CLI) | payer MEDICARE | END 2020-05-30 15:06 | disposition home or self-care (01) | LOC: COV 15:05 | PROVIDERS: ATTEND Surgery | DX: Z01.812 Encounter for preprocedural laboratory examination (principal); C50.911 Malignant neoplasm of unspecified site of right female breast; E11.9 Type 2 diabetes mellitus without complications; Z20.822 Contact with and (suspected) exposure to COVID-19 ==

== ENCOUNTER 2020-06-02 07:59 | Day surgery (SDC) | payer MEDICARE ==
[~2020-06-02 07:59] MED LIST changes: -BUFFERED LIDOCAINE 10 ML SYRINGE ONE; -LIDOCAINE 1%-EPI 1:100000 20 ML MDV ONE; +ceFAZolin 2 GM/50 ML 2 GM/50 ML BAG IV ONE
--- OUTSIDE RECORDS SUMMARY | 2020-06-02 08:03 | EXTERNAL MEDICAL SUMMARY RPT | Continuity of Care Document ---
:1940 Demographics Phone Unavailable Preferred Language Tuvaluan Marital Status Unknown Yazdanism Affiliation Unknown Race Unknown Ethnic Group Unknown Author Organization [facility] Address [address] [place] [address] Phone Care Team Providers Name Role Phone Scheidt Unavailable Unavailable Problems date description facility [id number] Malignant neoplasm of unspecified site of [facility] Social History date description facility [id number]
[2020-06-02] MEDS ORDERED: BUFFERED LIDOCAINE 10 ML SYRINGE ONE (08:43)
[2020-06-02] MEDS ORDERED: LIDOCAINE MPF 1%-EPI 1:200000 30 ML VIAL ONE (08:44)
--- NOTE | 2020-06-02 10:45 | ANESTHESIA ---
Pre-Anesthesia VS, & Labs - Diagnosis right breast cancer - Procedure right breast lumpectomy with sentinel node biopsy Vital Signs: Temp Pulse Resp BP Pulse Ox 36.1 C L 84 16 125/100 H 96 06/02/20 08:31 06/02/20 08:31 06/02/20 08:31 06/02/20 08:31 06/02/20 08:31 Height: 5 ft 2 in Weight (kg): 109.2 kg Body Mass Index: 44.0 BMI Classification: Morbidly Obese - NPO >8 hours - Is Patient ?: No - Lab Results Current Lab Results: Laboratory Tests 06/02/20 08:24: POC Whole Bld Glucose 162 H Home Medications and Allergies Home Medications: Ambulatory Orders Krill/Om-3/Dha/Epa/Phospho/Ast [Krill Oil 500 mg Softgel] 2,000 mg PO DAILY 05/20/20 Losartan Potassium 25 mg PO DAILY 04/30/15 Glimepiride [Amaryl] 2 mg PO DAILY 05/14/20 Krill/Om-3/Dha/Epa/Phospho/Ast [Krill Oil 500 mg Softgel] 2,000 mg PO DAILY 05/20/20 Allergies/Adverse Reactions: Allergies Allergy/AdvReac Type Severity Reaction Status Date / Time mussels AdvReac ulcerative Verified 05/20/20 11:35 colitis Anes History & Medical History - Anesthetic History Anesthesia Complications: reports: Post-Operative Nausea/Vomiting - Medical History Cardiovascular: reports: Hypertension Pulmonary: reports: Sleep apnea, CPAP use Gastrointestinal: reports: Ulcerative colitis Urinary: reports: Incontinence Neuro: reports: None Musculoskeletal: reports: Osteoarthritis Endocrine/Autoimmune: reports: Type 2 diabetes Blood Disorders: reports: None Skin: reports: None Smoking Status: Former smoker Psychosocial: reports: No issues indicated History of Cancer?: Yes - Surgical History General: reports: Colonoscopy Gynecologic: reports: Hysterectomy Orthopedic: reports: Knee replacement Exam General: Alert, Oriented x3, Cooperative, No acute distress Dental: WNL Mouth Openin Fingerbreadth Neck Mobility: Normal Mallampati classification: III Thyromental Distance: less than 4 cm Respiratory: Lungs clear, Normal breath sounds, No respiratory distress, No accessory muscle use Cardiovascular: Regular rate, Normal S1, Normal S2, No murmurs Mental/Cognitive Status: Alert/Oriented X3, Normal for patient Plan Anesthesia Type: General Consent for Procedure(s) Verified and Reviewed: Yes Code Status: Attempt Resuscitation ASA classification: 2-Mild systemic disease Is this case an emergency?: No
[2020-06-02] MEDS ORDERED: MORPHINE 2 MG/ML CARPUJECT IVP PRN (11:06)
[2020-06-02] MEDS ORDERED: HYDROmorphone 0.5 MG/0.5 ML SYRINGE IVP PRN (11:06)
[2020-06-02] MEDS ORDERED: fentaNYL 100 MCG/2 ML VIAL IVP PRN (11:06)
[2020-06-02] MEDS ORDERED: ATROPINE ABBOJECT 1 MG/10 ML SYRINGE IVP PRN (11:06)
[2020-06-02] MEDS ORDERED: ONDANSETRON 4 MG/2 ML VIAL IVP PRN ×2 (11:06→15:27)
[2020-06-02] MEDS ORDERED: NALOXONE 0.4 MG/ML VIAL IVP PRN (11:06)
[2020-06-02] MEDS ORDERED: LIDOCAINE MPF 2%-EPI 1:200000 20 ML VIAL ONE ×2 (11:14→13:33)
[2020-06-02] MEDS ORDERED: BUPIVACAINE 0.5% PF 30 ML VIAL ONE ×2 (11:14→13:33)
[2020-06-02] MEDS ORDERED: MIDAZOLAM 2 MG/2 ML VIAL ONE ×2 (11:17→13:31)
[2020-06-02] MEDS ORDERED: fentaNYL 100 MCG/2 ML VIAL ONE ×2 (11:18→13:31)
[2020-06-02] MEDS ORDERED: LIDOCAINE-MPF 2% 5 ML VIAL ONE ×2 (11:18→13:32)
[2020-06-02] MEDS ORDERED: PROPOFOL 200 MG/20 ML VIAL IVP ONE ×2 (11:18→13:32)
[2020-06-02] MEDS ORDERED: LIDOCAINE 2%-EPI 1:100000 20 ML MDV SUBQ ONE ×2 (11:23)
[2020-06-02] MEDS ORDERED: BUPIVACAINE 0.5% PF 30 ML VIAL INFIL ONE ×2 (11:23)
[2020-06-02] MEDS ORDERED: LACTATED RINGERS 1,000 ML IV SCH (12:00)
--- NOTE | 2020-06-02 12:28 | Nuclear Medicine Report ---
PROCEDURE: Lymph Node Scintigraphy INDICATIONS: RT BREAST CA RADIOPHARMACEUTICAL: 0.46 mCi Millipore filtered Tc-99m sulfur colloid. TECHNIQUE: The area around the nipple was prepped and draped in a sterile fashion. Tc-99m sulfur colloid was in jected intra-dermally in the outer edge of the areola in the right breast. Images were obtained subs equently. A body contour outline was obtained. FINDINGS: There is a single lymph node(s) in the ipsilateral axilla, which is marked on the skin and the images for referring physician. IMPRESSION: Administration of radiotracer into the right breast periareolar region for intra-operati ve sentinel lymph node localization. Reviewed by: July Wilkins MD, PhD on 06/02/2020 12:27 PM PDT Approved by: July Wilkins MD, PhD on 06/02/2020 12:27 PM PDT Station ID: [id number]
[2020-06-02] MEDS ORDERED: BUFFERED LIDOCAINE 10 ML SYRINGE IU ONE (12:35)
[2020-06-02] MEDS ORDERED: ONDANSETRON 4 MG/2 ML VIAL ONE (14:04)
[2020-06-02] MEDS ORDERED: DEXAMETHASONE 4 MG/ML VIAL ONE (14:04)
[2020-06-02] MEDS ORDERED: KETOROLAC 30 MG/ML VIAL ONE (14:53)
--- NOTE | 2020-06-02 15:05 | OPERATIVE REPORT ---
Operative Report - General Procedure Date: 06/02/20 Planned Procedure: Right breast lumpectomy with right axillary dissection Pre-Op Diagnosis: Biopsy proven right breast cancer Procedure Performed: Right breast lumpectomy with right axillary dissection Post Op Diagnosis: Biopsy proven right breast cancer - Procedure Note Primary Surgeon: Dylon Anesthesia Provider: JOANN Gamez Pathology: 1. Right axillary dissection 2. Right breast specimen Estimated Blood Loss (mL): 50 Findings: 1. Bulky adenopathy in the right axilla 2. Fibrous and nodular right breast tissue around and beyond the tumor cavity Complications: None apparent. - Other Other Information/Narrative: After reviewing results of the MRI today, I discussed with the patient the presence of grossly abnormal lymph nodes in the right axilla. We talked about the possibility of neoadjuvant chemotherapy and delay of today's procedure so that she could receive the same. After considering this as well as the possible negative effects of chemotherapy which have been discussed with her per Oncology, we elected to continue with the planned procedure. She understands I will attempt to obtain a sentinel node as well but will try to remove all enlarged axillary nodes that are accessible without additional sequela. After obtaining informed consent, the patient was brought to the operating room and placed in the supine position on the operating table. Following successful induction of general endotracheal anesthesia, appropriate padding of all bony prominences, and placement of appropriate monitors, the right breast was prepped and draped in the standard surgical fashion. A timeout was held per scope protocol. All elements of the surgical safety checklist were followed before, during, and after the procedure. I began by infiltrating a mixture of local anesthetics in the axillary fold on the right which had been previously marked in radiology for the site of the sentinel node.This was carried down through the skin and subcutaneous tissue to reveal the axillary fat pad below.The axillary fat pad was entered. The neoprobe was used to identify the site of the sentinel node. This was identified within a matted group of nodes in level 1 and 2 of the right axilla.It was not possible to isolate 1 node without invading the entire group.For this reason, I did not try to separate the sentinel node even though I could detect it within the mass.I performed a near complete axillary dissection beginning with exposure of the axillary vein superiorly. It was not skeletonized but was clearly identified. The axillary tissue was then carefully teased from this region. All lymphatics and vasculature were addressed with hemoclips prior to division. We continued the dissection medially along the lateral border of the chest wall on the right. Dissection continued to the pectoralis major and minor anteriorly. Again all vasculature and lymphatics were addressed addressed with hemoclips prior to division.We then went back to the superior position and began dissection laterally along the skin of the axilla.We were finally able to deliver the majority of the axillary fat pad into the field. Attempt was made to identify the sentinel node once again using the neoprobe. Once again, it was within the mass. We did not tease the mass apart.Palpation of the axilla revealed 1 remaining in low node which I elected to leave into place as it was matted within the long thoracic nerve.The wound was then checked for hemostasis and irrigated with warm water. It was aspirated free of all fluid and particulate matter. It was then closed in 2 layers with Vicryl and Monocryl suture. We turned our attention to the right breast mass. The area over the mass and in the periareolar region was infiltrated with a mixture of local anesthetics to cry to field block. A periareolar incision was then created and the mass and associated wire carefully dissected sharply from the subcutaneous tissue anteriorly and from the retromammary bursa posteriorly. The mass was removed in a single piece in a medial to lateral fashion. It was marked with a short stitch superior, wire marked lateral, and double stitch anterior. It was finally liberated sharply and delivered into the field. The wound was checked for hemostasis. It was irrigated again with warm water. The specimen xray was examined and found to contain the target clip and lesion, and wire - all well centered. The wound was then closed in 2 layers with Vicryl and Monocryl sutures. All sponge, needle, and instrument counts were correct at the conclusion of the case. The patient was let awakened anesthesia without difficulty and taken to the postanesthesia care unit in good condition.
[2020-06-02] MEDS ORDERED: oxyCODONE 5 MG TABLET PO PRN (15:27)
[2020-06-02] MEDS ORDERED: IBUPROFEN 600 MG TABLET PO PRN (15:27)
[2020-06-02] MEDS ORDERED: ACETAMINOPHEN 325 MG TABLET PO PRN (15:27)
--- NOTE | 2020-06-02 15:28 | ANESTHESIA POST OP EVALUATION ---
Anesthesia Post Eval - Post Anesthesia Eval Vitals: Last Vital Signs Temp 36.0 C L 06/02/20 15:15 Pulse 85 06/02/20 15:25 Resp 17 06/02/20 15:25 BP 114/96 H 06/02/20 15:25 Pulse Ox 95 06/02/20 15:25 CV Function Including HR & BP: Stable Pain Control: Satisfactory Nausea & Vomiting: Negative Mental Status: Baseline Respiratory Status: Airway Patent Hydration Status: Satisfactory Anesthesia Complications: None
[2020-06-02] MEDS ORDERED: LACTATED RINGERS 1,000 ML IV ONE (15:39)
[2020-06-02 16:03] VITALS: BP 143/81
--- NOTE | 2020-06-03 08:11 | Mammography Report ---
MAMMOGRAPHY GUIDED WIRE LOCALIZATION RIGHT BREAST WITH POST DIGITAL MAMMOGRAPHIC AND ULTRASOUND IMAGI NG AND RADIOGRAPHIC SPECIMEN IMAGIN06/02/2020 CLINICAL: Pre-op wire localization. Correlation is made to exams dated: 04/24/2020 mammogram, 04/16/2020 mammogram, 03/19/2020 mammogram, 1 03/25/2018 mammogram, 12/06/2018 mammogram, and 11/23/2017 mammogram - [facility]. A wire localization using mammography guidance was performed for the concerning circumscribed lobulat ed solid mass located in the right breast at 11 o'clock middle depth. This was described on the prev ious mammography and ultrasound reports. The skin was prepped in the usual manner. Local anesthetic was administered to the access site. The localization was approached from the lateral aspect. A J- hook wire was inserted into the targeted area through an introducer device under mammography guidance . A sterile dressing was applied to the access site. Post placement digital mammographic and ultras ound imaging demonstrates the tip demarcates the boundaries of the targeted area. IMPRESSION: WIRE LOCALIZATION Wire localization for the solid mass in the right breast at 11 o'clock middle depth was successful. The imaged specimen includes the lesion and a biopsy clip. A specimen radiograph was obtained. This exam was interpreted at Station ID: [id number]. Bharathi Santacruz M.D. [facility]/:06/02/2020 16:30:03 copy to: [facility] CATEGORY: () - Unspecified - other recall n/a LATERALITY: (B)
--- NOTE | 2020-06-03 08:12 | Mammography Report ---
SPECIMEN: 06/02/2020 CLINICAL: Right breast specimen. The specimen from the OR contains the mass and the biopsy localization clip. IMPRESSION: SPECIMEN Expected specimen appearance, containing the faintly visualized mass and prior biopsy clip at the mas s margin. This exam was interpreted at Station ID: [id number]. Bharathi Santacruz M.D. [facility]/:06/02/2020 16:31:50 copy to: [facility] CATEGORY: () - Unspecified - other recall n/a LATERALITY: (B)
== END 2020-06-02 08:00 | disposition home or self-care (01) ==
LOC: DI 07:59 → SDS 08:00
PROVIDERS: ATTEND Surgery
PROC: 07B50ZZ Excision of Right Axillary Lymphatic, Open Approach (ICD-10-PCS; 2020-06-02)
PROC: 0HBT0ZZ Excision of Right Breast, Open Approach (ICD-10-PCS; principal; 2020-06-02 11:00)
DX: C50.411 Malignant neoplasm of upper-outer quadrant of right female breast (principal); C77.3 Secondary and unspecified malignant neoplasm of axilla and upper limb lymph nodes; Z17.1 Estrogen receptor negative status [ER-]; E66.01 Morbid (severe) obesity due to excess calories; Z68.41 Body mass index [BMI] 40.0-44.9, adult; I10 Essential (primary) hypertension; E11.9 Type 2 diabetes mellitus without complications; G47.30 Sleep apnea, unspecified; Z87.891 Personal history of nicotine dependence; Z79.84 Long term (current) use of oral hypoglycemic drugs
CPT/HCPCS: 19281; 19302; 76098; 78195; J0690; J7120

== ENCOUNTER 2020-06-12 15:12 | Outpatient (CLI) | payer MEDICARE | END 2020-06-12 15:13 | disposition home or self-care (01) | LOC: LAB 15:12 | PROVIDERS: ATTEND Surgery | DX: Z01.812 Encounter for preprocedural laboratory examination (principal); C50.911 Malignant neoplasm of unspecified site of right female breast; E11.9 Type 2 diabetes mellitus without complications; Z20.822 Contact with and (suspected) exposure to COVID-19 ==

== ENCOUNTER 2020-06-16 06:30 | Day surgery (SDC) | payer MEDICARE ==
--- OUTSIDE RECORDS SUMMARY | 2020-06-16 06:34 | EXTERNAL MEDICAL SUMMARY RPT | Continuity of Care Document ---
:1940 Demographics Phone Unavailable Preferred Language Albanian Marital Status Unknown Zoroastrianism Affiliation Unknown Race Unknown Ethnic Group Unknown Author Organization [place] Address [address] [phone] Phone Care Team Providers Name Role Phone Scheidt Unavailable Unavailable Problems date description facility [id number] Malignant neoplasm of unspecified site of [facility]
[2020-06-16] MEDS ORDERED: MIDAZOLAM 2 MG/2 ML VIAL ONE (07:03)
[2020-06-16] MEDS ORDERED: LIDOCAINE-MPF 2% 5 ML VIAL ONE (07:04)
[2020-06-16] MEDS ORDERED: fentaNYL 100 MCG/2 ML VIAL ONE ×2 (07:04→11:11)
[2020-06-16] MEDS ORDERED: PROPOFOL 200 MG/20 ML VIAL IVP ONE (07:04)
--- NOTE | 2020-06-16 07:10 | ANESTHESIA ---
Pre-Anesthesia VS, & Labs - Diagnosis Right breast CA - Procedure R Mastectomy and axillary dissection Vital Signs: Temp Pulse Resp BP Pulse Ox 36.5 C 88 16 95 06/16/20 06:32 06/16/20 06:32 06/16/20 06:32 06/16/20 06:32 Height: 5 ft 2 in Weight (kg): 109 kg Body Mass Index: 43.9 BMI Classification: Morbidly Obese - NPO >8 hours - Is Patient ?: No Home Medications and Allergies Losartan Potassium 25 mg PO DAILY 04/30/15 Glimepiride [Amaryl] 2 mg PO DAILY 05/14/20 Krill/Om-3/Dha/Epa/Phospho/Ast [Krill Oil 500 mg Softgel] 2,000 mg PO DAILY 05/20/20 Allergies/Adverse Reactions: Allergies Allergy/AdvReac Type Severity Reaction Status Date / Time mussels AdvReac ulcerative Verified 05/20/20 11:35 colitis Anes History & Medical History - Anesthetic History Anesthesia Complications: reports: No previous complications Family history of Anesthesia Complications: Denies Family history of Malignant Hyperthermia: Denies - Medical History Cardiovascular: reports: Hypertension Pulmonary: reports: Sleep apnea, CPAP use Gastrointestinal: reports: Ulcerative colitis Urinary: reports: Incontinence Neuro: reports: None Musculoskeletal: reports: Osteoarthritis Endocrine/Autoimmune: reports: Type 2 diabetes Blood Disorders: reports: None Skin: reports: None Smoking Status: Former smoker - Surgical History General: reports: Colonoscopy Gynecologic: reports: Hysterectomy Orthopedic: reports: Knee replacement Exam General: Alert, Oriented x3, Cooperative Dental: WNL Mouth Openin Fingerbreadth Neck Mobility: Normal Mallampati classification: III Thyromental Distance: 4-6 cm Respiratory: Lungs clear Cardiovascular: Regular rate Plan Anesthesia Type: General Consent for Procedure(s) Verified and Reviewed: Yes Code Status: Attempt Resuscitation ASA classification: 3-Severe systemic disease Is this case an emergency?: No
[2020-06-16] MEDS ORDERED: PHENYLEPHRINE 10 MG/ML VIAL ONE (07:13)
[2020-06-16] MEDS ORDERED: BUPIVACAINE 0.5%-EPI 1:200000 PF 30 ML VIAL ONE (07:27)
[2020-06-16] MEDS ORDERED: LIDOCAINE MPF 2%-EPI 1:200000 20 ML VIAL ONE (07:27)
[2020-06-16] MEDS ORDERED: LIDOCAINE-MPF 1% 30 ML VIAL ONE (07:27)
[2020-06-16] MEDS ORDERED: LACTATED RINGERS 1,000 ML IV ONE (07:28)
[2020-06-16] MEDS ORDERED: ceFAZolin 2 GM/50 ML 2 GM/50 ML BAG IV ONE (07:58)
[2020-06-16] MEDS ORDERED: DEXAMETHASONE 4 MG/ML VIAL ONE (08:18)
[2020-06-16] MEDS ORDERED: ONDANSETRON 4 MG/2 ML VIAL ONE (08:18)
[2020-06-16] MEDS ORDERED: ePHEDrine 50 MG/ML VIAL IVP PRN (08:39)
[2020-06-16] MEDS ORDERED: NALOXONE 0.4 MG/ML VIAL IVP PRN (08:39)
[2020-06-16] MEDS ORDERED: ATROPINE ABBOJECT 1 MG/10 ML SYRINGE IVP PRN (08:39)
[2020-06-16] MEDS ORDERED: fentaNYL 100 MCG/2 ML VIAL IVP PRN (08:39)
[2020-06-16] MEDS ORDERED: MORPHINE 2 MG/ML CARPUJECT IVP PRN (08:39)
[2020-06-16] MEDS ORDERED: ONDANSETRON 4 MG/2 ML VIAL IVP PRN ×2 (08:39→10:51)
[2020-06-16] MEDS ORDERED: HYDROmorphone 0.5 MG/0.5 ML SYRINGE IVP PRN (08:39)
[2020-06-16] MEDS ORDERED: METOCLOPRAMIDE 10 MG/2 ML VIAL IVP PRN (08:39)
[2020-06-16] MEDS ORDERED: BUPIVACAINE 0.5%-EPI 1:200000 PF 30 ML VIAL SUBQ ONE ×2 (08:47→10:04)
[2020-06-16] MEDS ORDERED: LIDOCAINE 1% 50 ML MDV SUBQ ONE ×2 (08:47→10:04)
[2020-06-16] MEDS ORDERED: LACTATED RINGERS 1,000 ML IV SCH (09:00)
[2020-06-16] MEDS ORDERED: ACETAMINOPHEN 1,000 MG/100 ML 100 ML IV ONE (09:18)
[2020-06-16] MEDS ORDERED: LIDOCAINE 2%-EPI 1:100000 20 ML MDV SUBQ ONE (10:04)
--- NOTE | 2020-06-16 10:08 | XRAY Report ---
PROCEDURE: OR C-Arm Procedure INDICATIONS: PORT PLACEMENT TECHNIQUE: Digital acquisition images from the OR showing the tip and transverse course of the port c atheter. COMPARISON: None. FINDINGS: Normal port catheter positioning, limited view centered at the midline. IMPRESSION: Partial visualization of the port catheter centered at the midline and including the port catheter ti p. Reviewed by: Bharathi Santacruz MD on 06/16/2020 10:07 AM PDT Approved by: Bharathi Santacruz MD on 06/16/2020 10:07 AM PDT Station ID: [id number]
[2020-06-16] MEDS ORDERED: LACTATED RINGERS 900 ML IV ONE (10:35)
--- NOTE | 2020-06-16 10:38 | OPERATIVE REPORT ---
Operative Report - General Procedure Date: 06/16/20 Planned Procedure: Left subclavian port placement Right modified radical mastectomy Pre-Op Diagnosis: Locally advanced right breast cancer Procedure Performed: Left subclavian port placement Right modified radical mastectomy Post Op Diagnosis: Locally advanced right breast cancer - Procedure Note Primary Surgeon: Dylon Anesthesia Provider: JOANN Gamez Anesthesia Technique: General ET tube, Local Pathology: Right breast and axillary contents to pathology in formalin Estimated Blood Loss (mL): 200 Drain/Tube Type: Alvaro drain Indications: Locally advance right breast cancer with positive axillary nodes and positive margins on lumpectomy specimen. Findings: Healing seroma cavities in the right breast and axilla. Multple palpably firm lymph nodes. Complications: None apparent - Other Other Information/Narrative: After obtaining informed consent, the patient is brought to the operating room and placed in supine position on the operating table. Following successful induction of sedation with monitored anesthesia care and appropriate padding of all bony prominences, bilateral chest and neck were prepped and draped in the standard surgical fashion. A timeout was held per scope protocol. All elements of the surgical safety checklist were followed before, during, and after the procedure. Following infiltration with local anesthetic to create a field block, the left subclavian vein was accessed in the deltopectoral groove. The J-wire was gently placed into the vein. Fluoroscopy was used to confirm the position of the wire and in the subclavian vein. We anesthetized the existing healed scar in the area around it for placement of the port itself. An incision was created here and carried down through the skin and subcutaneous tissue. A pocket was created with blunt dissection. The port tubing was attached to the tunneling device and passed from the access site of the vein into the pocket. It was trimmed to an appropriate length and the port attached. The port was sewn into place in the pocket. The dilator and introducer were then passed over the J-wire that was in the subclavian vein. The J-wire and dilator were removed leaving only the introducer. The tubing was then passed through the introducer and the introducer cracked and removed per stitch bonding machine tender helper's directions. The port was then checked for function and flushed and maría elena easily. Additional local anesthetic was applied to the chest wall. The port pocket was closed with interrupted Vicryl sutures and Monocryl stitches were placed in both skin incision sites. We continued with right modified radical mastectomy. We began the procedure by infiltrating half percent Marcaine plain throughout the subcutaneous tissue of the breast and beneath the pectoralis major and minor muscles As well as portions of the serratus anterior. This was to done to provide a field block. A n incision was fashioned elliptically. This incision was then completed with a 10 blade scalpel. It was carried through the skin and subcutaneous tissue. Traction and countertraction were then used to divide the underlying breast tissue from the overlying dermis from the level of the incision to the clavicle superiorly, medially to the sternum, inferiorly to the inframammary fold, and lateral to the posterior axillary line. Dissection was continued into the right axilla to include the remainder of the axillary node packet. Limits of dissection in the axilla where the chest wall medially, the axillary vein superiorly, the skin of the axilla laterally, and the dissection and blended into the dissection of the axillary tail inferiorly. All palpable lymph nodes were taken from level 1 and 2 and palpably enlarged nodes from level 3.The axillary vein was not skeletonized. Once a circumferential dissection had been obtained, the breast was removed in a medial to lateral fashion to include the remaining portion of the right axillary node packet. All perforators were addressed with sutures or with cautery prior to division. The breast was then marked with a short stitch superior and a long stitch lateral. The wound was irrigated with warm water and aspirated free of all fluid and particulate matter. It was checked once again for hemostasis and touched up in just a couple of places with cautery. A 15 Faroese Alvaro drain was placed in the inframammary pocket and brought out inferior medially. It was sewn into place. The skin edges were then closed in an interrupted fashion with Vicryl suture and the Endo Close device was used to approximate the skin. The wound was cleaned and the Margarita wound management device was then placed to the overlying skin and hooked up to suction. A good seal was obtained. All sponge, needle, and instrument counts were correct at the conclusion of the case. The patient was allowed to wake from anesthesia without difficulty and taken to the postanesthesia care unit in good condition.
[2020-06-16] MEDS ORDERED: IBUPROFEN 600 MG TABLET PO PRN (10:51)
[2020-06-16] MEDS ORDERED: oxyCODONE 5 MG TABLET PO PRN ×2 (10:51→13:11)
--- NOTE | 2020-06-16 11:26 | ANESTHESIA POST OP EVALUATION ---
Anesthesia Post Eval - Post Anesthesia Eval Vitals: Last Vital Signs Temp 36.9 C 06/16/20 11:22 Pulse 88 06/16/20 11:22 Resp 18 06/16/20 11:22 BP 132/80 H 06/16/20 11:22 Pulse Ox 98 06/16/20 11:22 CV Function Including HR & BP: Stable Pain Control: Satisfactory Nausea & Vomiting: Negative Mental Status: Baseline Respiratory Status: Airway Patent Hydration Status: Satisfactory Anesthesia Complications: None
--- NOTE | 2020-06-16 12:12 | XRAY Report ---
PROCEDURE: Chest for Line Placement INDICATIONS: port placement left chest TECHNIQUE: One view of the chest was acquired. COMPARISON: None FINDINGS: Surgical changes and devices: Port-A-Cath tip has been placed crossing the midline and terminating in the expected position of the azygos arch of the superior vena cava.. Lungs and pleura: No pleural effusions or pneumothorax. Lungs are clear. Mediastinum: Mediastinal contours appear normal. Heart size is normal. Bones and chest wall: No suspicious bony lesions. Overlying soft tissues appear unremarkable. IMPRESSION: Azygos arch superior vena cava Port-A-Cath tip positioning, no pneumothorax. Reviewed by: Bharathi Santacruz MD on 06/16/2020 12:11 PM PDT Approved by: Bharathi Santacruz MD on 06/16/2020 12:11 PM PDT Station ID: [id number]
[2020-06-16] MEDS ORDERED: ONDANSETRON ODT 4 MG TABLET TL PRN (13:11)
[2020-06-16] MEDS ORDERED: PREGABALIN 25 MG CAPSULE PO STA (13:17)
[2020-06-16] MEDS ORDERED: methocarbamoL 500 MG TABLET PO PRN (13:17)
[2020-06-16] MEDS: ACETAMINOPHEN 325 MG TABLET PO PRN ×2 (14:38→21:40)
[2020-06-16] MEDS: INSULIN ASPART 300 UNIT/3 ML PEN SUBQ SCH ×2 (17:20→21:41)
[2020-06-17] MEDS: ACETAMINOPHEN 325 MG TABLET PO PRN (05:44)
[2020-06-17 07:55] VITALS: BP 120/83
[2020-06-17] MEDS: INSULIN ASPART 300 UNIT/3 ML PEN SUBQ SCH (07:56)
--- NOTE | 2020-06-17 08:56 | PROVIDER PROGRESS NOTE ---
Subjective - General Procedure Date: 06/16/20 Post Op Days: 1 Procedure Performed: Right modified radical mastectomy - Review of Systems Wound/Incisions: positive: Healing well Drain Type: Alvaro Drain Output Description: Serous General: positive: No symptoms HEENT: positive: No symptoms Pulmonary: positive: No symptoms Cardiovascular: positive: No symptoms Gastrointestinal: positive: No symptoms Genitourinary: positive: No symptoms Musculoskeletal: positive: No symptoms Skin: positive: No symptoms - Other Other Information/Narrative: Pain is well controlled. She is anxious to go home. Over night the drainage has become much more serous Objective - Patient Data Reviewed Vital Signs: Yes Vital Signs: Vital Signs x48h Temp Pulse Resp BP Pulse Ox 06/17/20 07:54 36.3 C L 79 18 120/83 H 95 06/17/20 05:39 36.9 C 81 18 127/67 96 Weight: Weight 06/15/20 06/16/20 06/17/20 23:59 23:59 23:59 Weight (kg) 109 kg Intake & Output: Intake and Output Totals x24h 06/15/20 06/16/20 06/17/20 23:59 23:59 23:59 Intake Total 1500 240 Output Total 510 84 Balance 990 156 - Lab Results Other Lab Results: Lab Results x24hrs 06/17/20 06/16/20 06/16/20 Range/Units 07:21 20:40 16:49 POC Whole Bld Glucose 150 H 258 H 338 H (70 - 100) mg/dL 06/16/20 Range/Units 12:28 POC Whole Bld Glucose 254 H (70 - 100) mg/dL - Current Medications Current Medications: Current Medications Generic Name Dose Route Start Last Admin Trade Name Freq PRN Reason Stop Dose Admin Acetaminophen 650 mg 06/16/20 10:51 06/17/20 05:44 Acetaminophen 325 Mg Tablet PO 650 mg Q6H PRN Administration Pain or Fever > 38C (100.4F) Docusate Sodium 250 mg 06/17/20 09:00 06/17/20 08:02 Docusate Sodium 250 Mg Capsule PO 250 mg DAILY AGUSTÍN Administration Glimepiride 2 mg 06/17/20 09:00 06/17/20 08:02 Glimepiride 2 Mg Tablet PO 2 mg DAILY AGUSTÍN Administration Insulin Aspart 1 - 9 unit 06/16/20 17:00 06/17/20 07:56 Insulin Aspart 300 Unit/3 Ml Pen SUBQ 1 unit 0800,1200,1700,2100 AGUSTÍN Administration Protocol Losartan Potassium 25 mg 06/17/20 09:00 06/17/20 08:02 Losartan 50 Mg Tablet PO Not Given DAILY AGUSTÍN Methocarbamol 500 mg 06/16/20 13:17 06/17/20 08:48 Methocarbamol 500 Mg Tablet PO 500 mg Q6HR PRN Administration Spasms - Physical Exam Wound/Incisions: positive: Healing well, Other (Provena in place and functioning) General Appearance: positive: No acute distress Eyes Bilateral: positive: Normal inspection ENT: positive: ENT inspection nml Neck: positive: Nml inspection Respiratory: positive: Chest non-tender Cardiovascular: positive: Regular rate & rhythm Abdomen: positive: Non-tender Rectal: positive: Non-tender Back: positive: Nml inspection Skin: positive: Color nml, No rash Extremities: positive: Non-tender Neurologic/Psychiatric: positive: Oriented x3 ABX Reporting Has patient been on IV antibiotics over the past 48 hours?: Yes Impression/Plan - Problem List Problem List: Discharge home this AM. Follow up on Tuesday with nurse for Provena removal and with me in 2 weeks for a post op visit
[2020-06-17] MEDS ORDERED: GLIMEPIRIDE 2 MG TABLET PO SCH (09:00)
[2020-06-17] MEDS ORDERED: DOCUSATE SODIUM 250 MG CAPSULE PO SCH (09:00)
[2020-06-17] MEDS ORDERED: LOSARTAN 50 MG TABLET PO SCH (09:00)
== END 2020-06-17 11:30 | disposition home or self-care (01) ==
LOC: SDS 06:30 → MS2 11:50 → SDS 06-17 11:30
PROVIDERS: ATTEND Surgery
PROC: 0HTT0ZZ Resection of Right Breast, Open Approach (ICD-10-PCS; principal; 2020-06-16 07:30)
PROC: 07T50ZZ Resection of Right Axillary Lymphatic, Open Approach (ICD-10-PCS; 2020-06-16 07:30)
DX: C50.911 Malignant neoplasm of unspecified site of right female breast (principal); C77.3 Secondary and unspecified malignant neoplasm of axilla and upper limb lymph nodes; Z17.1 Estrogen receptor negative status [ER-]; E66.9 Obesity, unspecified; Z68.41 Body mass index [BMI] 40.0-44.9, adult; I10 Essential (primary) hypertension; G47.33 Obstructive sleep apnea (adult) (pediatric); K51.90 Ulcerative colitis, unspecified, without complications; M06.9 Rheumatoid arthritis, unspecified; E11.9 Type 2 diabetes mellitus without complications; K21.9 Gastro-esophageal reflux disease without esophagitis; E78.00 Pure hypercholesterolemia, unspecified; R32 Unspecified urinary incontinence; Z87.891 Personal history of nicotine dependence; Z79.84 Long term (current) use of oral hypoglycemic drugs; Z79.899 Other long term (current) drug therapy
CPT/HCPCS: 19307; 36561; 71045; A9270; C1788; J0131; J0690; J7120

== ENCOUNTER 2020-06-26 10:16 | Outpatient (CLI) | payer MEDICARE | END 2020-06-26 10:17 | disposition home or self-care (01) | LOC: DI 10:16 | PROVIDERS: ATTEND Internal Medicine | DX: I49.3 Ventricular premature depolarization (principal); I51.7 Cardiomegaly | CPT/HCPCS: 93306 ==

== ENCOUNTER 2020-07-10 08:00 | Outpatient (CLI) | payer MEDICARE | END 2020-07-10 23:59 | disposition home or self-care (01) | LOC: LAB.R 08:00 | PROVIDERS: ATTEND Surgery | DX: T81.42XD Infection following a procedure, deep incisional surgical site, subsequent encounter (principal) | CPT/HCPCS: 87070; 87077; 87181; 87205 ==

== ENCOUNTER 2020-07-16 09:57 | Outpatient (CLI) | payer MEDICARE ==
[2020-07-16] MEDS ORDERED: IOPAMIDOL-300 50 ML VIAL ONE (10:04)
[2020-07-16] MEDS ORDERED: IOVERSOL 320 100 ML VIAL IVP ONE ×2 (10:04→11:47)
[2020-07-16] MEDS ORDERED: IOPAMIDOL-300 50 ML VIAL PO ONE (11:47)
--- NOTE | 2020-07-16 14:39 | CT Report ---
PROCEDURE: CHEST W INDICATIONS: BREAST CANCER CONTRAST: IV CONTRAST: Optiray 320 ml: 100 PO CONTRAST: *NO PO CONTRAST TECHNIQUE: After the administration of intravenous contrast, 5 mm thick sections acquired from the pulmonary api laura to the posterior costophrenic angles. 7 mm thick coronal MIP reformats were acquired. For radia tion dose reduction, the following was used: automated exposure control, adjustment of mA and/or kV according to patient size. COMPARISON: None. FINDINGS: Image quality: Excellent. Lungs and pleura: No acute air space opacities. No pleural effusions or pneumothorax. Central and peripheral airways are patent and normal in caliber. Mediastinum: Heart size is normal. No pericardial effusion. No mediastinal or hilar adenopathy by size criteria. Thoracic aorta and central pulmonary arteries are normal in size. Esophagus is chasity l in caliber. No hiatal hernia. Port-A-Cath from a left-sided approach traverses into the inferior aspect of the left brachiocephalic vein, and is not extending into the origin of the superior vena ca va at this time. Bones and chest wall: No suspicious bony lesions. No vertebral body compression fractures. No axil mckenzie or supraclavicular adenopathy by size criteria. The thyroid is normal in size and there are no incidental findings.. There is postsurgical distortion of the right breast, and surgical clips indica te prior lymph node surgery at the right axilla. Abdomen: Visualized upper abdominal solid organs appear normal. Upper abdominal bowel loops are nor mal in caliber. There is a 5 cm simple cyst within the left hepatic lobe, and also several periphera lly calcified 1 cm gallstones within the gallbladder lumen. IMPRESSION: Post surgical distortion at the right breast. Prior right axillary lymph node excision. No adenopathy or distant metastatic disease is found. Port-A-Cath from a left-sided approach extends into the inferior margin of the left brachiocephalic v ein. A 5 cm simple appearing water density left medial hepatic segment at cyst is present. Several small g allstones are present within the gallbladder lumen layering dependently, each measuring approximately 1 cm in diameter. Reviewed by: Bharathi Santacruz MD on 07/16/2020 2:38 PM PDT Approved by: Bharathi Santacruz MD on 07/16/2020 2:38 PM PDT Station ID: [id number]
--- NOTE | 2020-07-16 15:19 | CT Report ---
PROCEDURE: Abdomen/Pelvis W INDICATIONS: BREAST CANCER CONTRAST: IV CONTRAST: Optiray 320 ml: 100 PO CONTRAST TECHNIQUE: After the administration of oral and intravenous contrast, 5 mm thick sections acquired from the diap hragms to the symphysis. 5 mm thick coronal and sagittal reformats were acquired. For radiation dos e reduction, the following was used: automated exposure control, adjustment of mA and/or kV accordin g to patient size. COMPARISON: Same day CT chest. FINDINGS: Image quality: Excellent. ABDOMEN: Lung bases: Lung bases are clear. Heart size is normal. Moderate size hiatal hernia. Right mastecto my partially visualized. Trace subcutaneous gas. Solid organs: Liver and spleen are normal in size. Cyst in the right lobe liver measuring 5.3 cm. Ti ny hypodensity in the left lobe of the liver, (3/15). Gallbladder is nondistended. Gallstones are pr esent. Biliary system is non dilated. Pancreas enhances normally. No adrenal nodules. Thickening o f the left adrenal gland. Kidneys demonstrate normal size and enhancement, without hydronephrosis. Peritoneum and bowel: Bowel loops demonstrate normal wall thickness and caliber. Diverticulosis. Nor mal appendix. No free fluid or air. Nodes and vessels: No retroperitoneal or mesenteric adenopathy by size criteria. Aorta and inferior vena cava are normal in size. Miscellaneous: No ventral hernias. PELVIS: Genitourinary: Bladder wall thickness is normal. Ovaries are visualized. Uterus is absent. Miscellaneous: No inguinal hernias or adenopathy. Bones: Hypodensity at L5 has the appearance of an intraosseous hemangioma. L1 Schmorl's node. No vert ebral body compression fractures. IMPRESSION: 1. No convincing metastatic disease identified in the abdomen or pelvis. 2. Tiny hypodensity in the left lobe liver. Favor small cysts. 3. No adenopathy. 4. Thickening of the left adrenal gland there is favored to represent adrenal hyperplasia. -Recommend attention on follow-up scans. 5. No aggressive appearing osseous lesions. Reviewed by: Martín Kinsey MD on 07/16/2020 3:17 PM PDT Approved by: Martín Kinsey MD on 07/16/2020 3:17 PM PDT Station ID: [id number]
== END 2020-07-16 09:58 | disposition home or self-care (01) ==
LOC: DI 09:57
PROVIDERS: ATTEND Internal Medicine
DX: C50.811 Malignant neoplasm of overlapping sites of right female breast (principal)
CPT/HCPCS: 71260; 74177; Q9967

== ENCOUNTER 2020-08-22 08:47 | Outpatient (CLI) | payer MEDICARE ==
--- NOTE | 2020-08-22 16:07 | Nuclear Medicine Report ---
PROCEDURE: Bone Whole Body INDICATIONS: BREAST CA RADIOPHARMACEUTICAL: 26.7 mCi Tc-99m MDP IV. TECHNIQUE: Delayed whole-body scintigrams were obtained approximately 3-4 hours after intravenous injection of r adiotracer. Anterior and posterior views were acquired from vertex to feet. Additional left and rig ht oblique views of the skull and cervical spine were obtained. COMPARISON: CT chest with contrast 07/16/2020. CT abdomen and pelvis with contrast, 07/16/2020. FINDINGS: There is linear increased uptake along the cervical spine bilaterally. No lesions are iden tified in skull, sternum, scapulae, clavicles, ribs, bony pelvis, or visualized long bones. There are foci of increased uptake in mid thoracic spine and lumbar spine, most likely degenerative in nature. Early metastasis could be obscured. Foci of increased periarticular activity are present involving s houlders, hips, left and both feet, consistent with degenerative/arthritic changes. Question right kn ee arthroplasty. IMPRESSION: 1. No definitive scintigraphic findings to suggest osseous metastasis. 2. There is linear increased uptake along the cervical spine bilaterally, indeterminate in cause or c linical significance. Recommend clinical correlation and radiographic correlation if clinically indic ated. Reviewed by: Germán Shah MD on 08/22/2020 4:05 PM PDT Approved by: Germán Shah MD on 08/22/2020 4:05 PM PDT Station ID: [id number]
== END 2020-08-22 08:48 | disposition home or self-care (01) ==
LOC: DI 08:47
PROVIDERS: ATTEND Internal Medicine
DX: R93.7 Abnormal findings on diagnostic imaging of other parts of musculoskeletal system (principal)
CPT/HCPCS: 78306

== ENCOUNTER 2020-11-12 12:30 | Day surgery (SDC) | payer MEDICARE ==
[2020-11-12] MEDS ORDERED: LACTATED RINGERS 1,000 ML IV ONE ×2 (12:35→16:09)
[2020-11-12] MEDS ORDERED: CEFAZOLIN SODIUM IN 0.9 % NACL 2 GM/100 ML BAG IV ONE (12:42)
[2020-11-12] MEDS ORDERED: ONDANSETRON 4 MG/2 ML VIAL IVP PRN (13:25)
[2020-11-12] MEDS ORDERED: ePHEDrine 50 MG/ML VIAL IVP PRN (13:25)
[2020-11-12] MEDS ORDERED: MORPHINE 2 MG/ML CARPUJECT IVP PRN (13:25)
[2020-11-12] MEDS ORDERED: fentaNYL 100 MCG/2 ML VIAL IVP PRN (13:25)
[2020-11-12] MEDS ORDERED: ATROPINE ABBOJECT 1 MG/10 ML SYRINGE IVP PRN (13:25)
[2020-11-12] MEDS ORDERED: NALOXONE 0.4 MG/ML VIAL IVP PRN (13:25)
[2020-11-12] MEDS ORDERED: HYDROmorphone 0.5 MG/0.5 ML SYRINGE IVP PRN (13:25)
[2020-11-12] MEDS ORDERED: METOCLOPRAMIDE 10 MG/2 ML VIAL IVP PRN (13:25)
--- NOTE | 2020-11-12 13:25 | ANESTHESIA ---
Pre-Anesthesia VS, & Labs - Diagnosis breast cancer - Procedure Portacath removal and replacement Vital Signs: Temp Pulse Resp BP Pulse Ox 36.6 C 101 H 12 141/59 H 98 11/12/20 12:36 11/12/20 12:36 11/12/20 12:36 11/12/20 12:36 11/12/20 12:36 Height: 5 ft 2 in Weight (kg): 103.9 kg Body Mass Index: 41.8 BMI Classification: Morbidly Obese - NPO >8 hours - Is Patient ?: No - Lab Results Current Lab Results: Laboratory Tests 11/12/20 13:14: POC Whole Bld Glucose 145 H Lab results reviewed: Yes Home Medications and Allergies Home Medications: Ambulatory Orders Glimepiride [Amaryl] 2 mg PO 0800 11/11/20 Losartan Potassium 25 mg PO 11/11/20 Docusate Sodium 100Mg Capsule [Colace 100Mg Capsule] 2 cap PO DAILY 09/03/20 Glimepiride [Amaryl] 2 mg PO 0800 11/11/20 Losartan Potassium 25 mg PO 11/11/20 Allergies/Adverse Reactions: Allergies Allergy/AdvReac Type Severity Reaction Status Date / Time mussels AdvReac ulcerative Verified 09/24/20 09:27 colitis Anes History & Medical History - Anesthetic History Anesthesia Complications: reports: No previous complications Family history of Anesthesia Complications: Denies Family history of Malignant Hyperthermia: Denies - Medical History Cardiovascular: reports: Hypertension Pulmonary: reports: Sleep apnea, CPAP use Gastrointestinal: reports: Ulcerative colitis Urinary: reports: Incontinence Neuro: reports: None Musculoskeletal: reports: Osteoarthritis Endocrine/Autoimmune: reports: Type 2 diabetes Blood Disorders: reports: None Skin: reports: None Smoking Status: Former smoker - Surgical History General: reports: Colonoscopy Gynecologic: reports: Hysterectomy Orthopedic: reports: Knee replacement Exam General: Alert, Oriented x3, Cooperative, No acute distress Dental: WNL Mouth Openin Fingerbreadth Neck Mobility: Normal Mallampati classification: II Respiratory: Lungs clear, Normal breath sounds, No respiratory distress Cardiovascular: Regular rate, Normal S1, Normal S2, No murmurs Plan Anesthesia Type: General, MAC, Total IV Consent for Procedure(s) Verified and Reviewed: Yes Code Status: Attempt Resuscitation ASA classification: 3-Severe systemic disease Is this case an emergency?: No
[2020-11-12] MEDS ORDERED: LACTATED RINGERS 1,000 ML IV SCH (14:00)
[2020-11-12] MEDS ORDERED: LIDOCAINE 1% 50 ML MDV SUBQ ONE ×2 (14:35)
[2020-11-12] MEDS ORDERED: LIDOCAINE 1% 50 ML MDV ONE (14:46)
[2020-11-12] MEDS ORDERED: BUPIVACAINE 0.25% PF 30 ML VIAL ONE (14:47)
[2020-11-12] MEDS ORDERED: PROPOFOL 500 MG/50 ML 500 MG/50 ML VIAL ONE ×2 (14:48→15:27)
[2020-11-12] MEDS ORDERED: ACETAMINOPHEN 1,000 MG/100 ML 100 ML IV ONE (14:48)
[2020-11-12] MEDS ORDERED: ONDANSETRON 4 MG/2 ML VIAL ONE (14:48)
[2020-11-12] MEDS ORDERED: MIDAZOLAM 2 MG/2 ML VIAL ONE (14:49)
[2020-11-12] MEDS ORDERED: BUPIVACAINE 0.25% PF 30 ML VIAL SUBQ ONE (15:13)
--- NOTE | 2020-11-12 15:58 | XRAY Report ---
PROCEDURE: OR Port-A-Cath INDICATIONS: PORT PLACEMENT TECHNIQUE: Single intraoperative fluoroscopic image of chest were obtained. COMPARISON: None. FINDINGS: Intraoperative fluoroscopic image of chest shows left-sided central venous catheter tip in the region of SVC. IMPRESSION: Fluoroscopy guidance was provided intraoperatively for left chest wall port placement. Reviewed by: Gera Baets MD on 11/12/2020 3:57 PM PDT Approved by: Gera Bates MD on 11/12/2020 3:57 PM PDT Station ID: [id number]
--- NOTE | 2020-11-12 16:07 | ANESTHESIA POST OP EVALUATION ---
Anesthesia Post Eval - Post Anesthesia Eval Vitals: Last Vital Signs Temp 36.6 C 11/12/20 12:36 Pulse 101 H 11/12/20 12:36 Resp 12 11/12/20 12:36 BP 141/59 H 11/12/20 12:36 Pulse Ox 98 11/12/20 12:36 CV Function Including HR & BP: Stable Pain Control: Satisfactory Nausea & Vomiting: Negative Mental Status: Baseline Respiratory Status: Airway Patent Hydration Status: Satisfactory Anesthesia Complications: None
[2020-11-12] MEDS ORDERED: HYDROcod/ACETAM 5/325 MG TABLET PO PRN (16:08)
--- NOTE | 2020-11-12 16:13 | OPERATIVE REPORT ---
Operative Report - General Procedure Date: 11/12/20 Planned Procedure: removal and placing new left subclavian power port Pre-Op Diagnosis: port does not aspirate well Procedure Performed: removal and placement new left subclavian power port Post Op Diagnosis: breast cancer and need for chemotherapy - Procedure Note Primary Surgeon: francis vega Anesthesia Technique: Local, MAC Estimated Blood Loss (mL): 5 Drain/Tube Type: Other (none) Indications: port does not aspirate well and need port for chemotherapy Findings: new port tip at distal svc flushes and aspirates easily Complications: none - Other Other Information/Narrative: The patient was properly identified brought to the operating room and placed in supine position. Monitored anesthesia care was given. IV sedation was given. She was positioned for portacatheter placement. She was prepped and draped in a sterile fashion and given preoperative antibiotics. An incision was made over the old incision of the left chest port. The port was removed. Portacatheter tubing was brought up to the subclavian vein access point. Guidewire would not easily pass down the old portacatheter tubing. The left subclavian vein was accessed first pass with a needle. Guidewire was then placed. Proper position was confirmed with fluoroscopy. New portacatheter tubing was placed through a subcutaneous tunnel up to the access point. Portacatheter tubing was then placed down a dilator peel-away sheath. The tubing was then pulled back to the distal superior vena cava. In this location it would flush and aspirate easily. The tubing was then cut to size and port further assembled. The port was secured with interrupted 5-0 Prolene. The port was flushed and aspirated multiple times during this procedure. Buried interrupted subdermal 3-0 Vicryl sutures were placed. Skin was closed with buried interrupted a running 4-0 Monocryl subcuticular suture. Portacatheter was then accessed with a Bui needle. Again aspirated and flushed very easily this time with heparin. Dressing was applied. Port was left accessed. She tolerated the procedure well she was awakened and brought to recovery in good condition.
[2020-11-12 16:39] VITALS: BP 132/74
== END 2020-11-12 12:31 | disposition home or self-care (01) ==
LOC: SDS 12:30
PROVIDERS: ATTEND Surgery
DX: C50.911 Malignant neoplasm of unspecified site of right female breast (principal); E66.01 Morbid (severe) obesity due to excess calories; Z68.41 Body mass index [BMI] 40.0-44.9, adult; G47.30 Sleep apnea, unspecified; Z87.891 Personal history of nicotine dependence
CPT/HCPCS: 36582; C1788; J0131; J0690; J7120

== ENCOUNTER 2021-04-08 11:06 | Emergency (ER) | payer MEDICARE ==
[2021-04-08] MEDS ORDERED: SODIUM CHLORIDE 0.9% 1,000 ML IV STA ×2 (11:17)
[2021-04-08 11:43] LABS: BASOPHILS # (AUTO) 0.1 10^3/uL (0.0-0.1); BASOPHILS % (AUTO) 0.6 %; EOSINOPHILS # (AUTO) 0.3 10^3/uL (0.0-0.7); EOSINOPHILS % (AUTO) 3.1 %; HCT - HEMATOCRIT 42.5 % (37.0-47.0); HGB - HEMOGLOBIN 13.8 g/dL (12.0-16.0); LYMPHOCYTES # (AUTO) 0.4 10^3/uL (1.5-3.5); LYMPHOCYTES % (AUTO) 4.2 %; MEAN CORPUSCULAR HEMOGLOBIN 25.5 pg (27.0-31.0); MEAN CORPUSCULAR HGB CONC 32.5 g/dL (32.0-36.0); MEAN CORPUSCULAR VOLUME 78.4 fL (81.0-99.0); MEAN PLATELET VOLUME 8.7 fL (7.9-10.8); MONOCYTES # (AUTO) 0.7 10^3/uL (0.0-1.0); MONOCYTES % (AUTO) 8.2 %; NEUTROPHILS # (AUTO) 6.9 10^3/uL (1.5-6.6); NEUTROPHILS % (AUTO) 82.9 %; PLT - PLATELET COUNT 361 10^3/uL (130-450); RED BLOOD COUNT 5.42 10^6/uL (4.20-5.40); RED CELL DISTRIBUTION WIDTH 15.7 % (12.0-15.0); WHITE BLOOD COUNT 8.4 x10^3/uL (4.8-10.8)
[2021-04-08 12:05] LABS: ALBUMIN 3.7 g/dL (3.2-5.5); ALBUMIN/GLOBULIN RATIO 0.9 (1.0-2.2); BILIRUBIN,TOTAL 0.9 mg/dL (0.2-1.0); CALCIUM 9.4 mg/dL (8.5-10.3); CREATININE 0.7 mg/dL (0.4-1.0); TOTAL PROTEIN 7.7 g/dL (6.7-8.2)
[2021-04-08 12:30] LABS: B. PARAPERTUSSIS- RESP PCR PAN NOT DETECTED; B. PERTUSSIS- RESP PCR PANEL NOT DETECTED; C. PNEUMONIAE- RESP PCR PANEL NOT DETECTED; CORONAVIRUS 229E-RESP PCR NOT DETECTED; CORONAVIRUS HKU1-RESP PCR NOT DETECTED; CORONAVIRUS NL63-RESP PCR NOT DETECTED; CORONAVIRUS OC43-RESP PCR NOT DETECTED; HUMAN METAPNEUMOVIRUS NOT DETECTED; INFLUENZA A- RESP PCR PANEL NOT DETECTED; INFLUENZA B - RESP PCR PANEL NOT DETECTED; M. PNEUMONIAE- RESP PCR PANEL NOT DETECTED; PARAINFLUENZA VIRUS 1 NOT DETECTED; PARAINFLUENZA VIRUS 2 NOT DETECTED; PARAINFLUENZA VIRUS 3 NOT DETECTED; PARAINFLUENZA VIRUS 4 NOT DETECTED; RHINOVIRUS/ENTEROVIRUS NOT DETECTED; RSV- RESP PCR PANEL NOT DETECTED; SARS-CoV-2 -RESP PCR PANEL NOT DETECTED
--- NOTE | 2021-04-08 12:33 | XRAY Report ---
PROCEDURE: Chest 1 View X-Ray INDICATIONS: chest pain TECHNIQUE: One view of the chest was acquired. COMPARISON: 06/16/2020 FINDINGS: Surgical changes and devices: Left distal subclavian Port-A-Cath demonstrated with the tip extending to the region of the superior vena cava. Surgical clips redemonstrated in the right axilla. Lungs and pleura: There is diffuse pulmonary edema. No focal consolidation. No pleural effusions or pneumothorax. Mediastinum: Mediastinal contours appear unchanged. Heart size is at the upper limits of normal. Bones and chest wall: No suspicious bony lesions. Overlying soft tissues appear unremarkable. IMPRESSION: 1. Pulmonary edema suggestive of congestive heart failure but the differential includes noncardiogeni c etiologies such as atypical pneumonia. Reviewed by: Bryan Christina MD on 04/08/2021 12:31 PM PST Approved by: Bryan Christina MD on 04/08/2021 12:31 PM PST Station ID: [id number]
[2021-04-08] MEDS ORDERED: IOVERSOL 320 100 ML VIAL IVP ONE ×2 (13:18→20:24)
[2021-04-08 13:43] LABS: % IRON SATURATION 13 % (20-50); IRON 33 ug/dL (28-170); TOTAL IRON BINDING CAPACITY 245 ug/dL (250-450); TRANSFERRIN 175 mg/dL (192-382)
--- NOTE | 2021-04-08 14:16 | CT Report ---
PROCEDURE: ANGIO CHEST W/WO INDICATIONS: hypoxia, dyspnea CONTRAST: IV CONTRAST: Optiray 320 ml: 80 PO CONTRAST: *NO PO CONTRAST TECHNIQUE: After the administration of intravenous contrast, 2 mm axial images were acquired from the pulmonary apices to the posterior costophrenic angles during the arterial phase. In addition, 1 mm lung kernel and 5 mm soft tissue kernel reconstructions were performed. 3-dimensional coronal oblique maximum int ensity projection (MIP) reformats, 8 mm axial MIP, and 5 mm coronal and sagittal MPR reformats were t hen performed through the thorax. For radiation dose reduction, the following was used: automated exp osure control, adjustment of mA and/or kV according to patient size. COMPARISON: Chest x-ray 04/08/2021, chest CT 07/16/2020. FINDINGS: Image quality: Excellent. Pulmonary arteries: Pulmonary arteries demonstrate no intraluminal filling defects to suggest centra l pulmonary embolism. Evaluation of distal subsegmental branches is limited due to suboptimal contras t opacification. Lungs and pleura: There are bilateral patchy groundglass opacities bilaterally involving all lobes wi th areas of confluent consolidation peripherally in the right upper and middle lobes anteriorly. No p leural effusions or pneumothorax. Central and peripheral airways are patent. Mediastinum: Heart size is normal, without pericardial effusion. No mediastinal or hilar adenopathy . Thoracic aorta is normal in caliber and enhancement. Esophagus is normal in caliber, with a moder ate-sized hiatal hernia. Bones and chest wall: No suspicious bony lesions. Ribs and thoracic spine appear intact throughout. Postsurgical changes are redemonstrated status post right mastectomy. Multiple surgical clips are dem onstrated in the right chest wall and axilla. No axillary or supraclavicular adenopathy. Thyroid dem onstrates no discrete nodules. A left chest wall subclavian Port-A-Cath is demonstrated with the tip not well seen on the current study due to injected contrast. Abdomen: Visualized upper abdomen demonstrates gallstones within the partially visualized gallbladde r. There is a large cyst within the partially visualized liver. There is thickening of the left adren al gland which appears similar to the prior study. IMPRESSION: 1. No evidence of central pulmonary embolism with evaluation of distal subsegmental branches limited due to suboptimal contrast opacification. 2. Bilateral scattered groundglass opacities involving all lobes with areas of confluent consolidatio n anteriorly in the right upper and middle lobes. The findings likely represent pneumonia, with findi ngs suggestive of atypical pneumonia. The differential includes inflammatory etiologies such as hyper sensitivity pneumonitis although these are considered less likely. 3. Moderate size hiatal hernia. 4. Partially visualized cholelithiasis. Reviewed by: Bryan Christina MD on 04/08/2021 2:14 PM PST Approved by: Bryan Christina MD on 04/08/2021 2:14 PM PST Station ID: [id number]
[2021-04-08] MEDS ORDERED: cefTRIAXone 2 GM in SODIUM CHLORIDE 0.9% MINIBAG 100 ML IV STA (14:52)
[2021-04-08] MEDS ORDERED: AZITHROMYCIN 250 MG TABLET PO STA (14:52)
[2021-04-08] MEDS ORDERED: predniSONE 20 MG TABLET PO STA (14:58)
--- NOTE | 2021-04-08 16:24 | ED Physician Documentation ---
History of Present Illness - Stated complaint Stated Complaint: EXTREME FATIGUE, NO TASTE, EXHAUSTED - Chief complaint Chief Complaint: General - History obtained from History obtained from: Patient - Additonal information Additional information: The patient sent to the emergency department by Dr. Osborne and surgery for chief complaint of tachycardia, dyspnea, and general fatigue. The patient has a hi story of right breast cancer for which she has been treated with chemotherapy, radiation, and mastectomy. She states that her radiation was back in December and that she actually is been feeling fairly well since then, Until about a month ago when she began to feel exhausted and short of breath. The patient states that this Progressed over the first several days and then stabilized at his current level. She denies any fevers or chills. She has had a mild cough but not much. She denies feeling sick in any other way. She is vaccinated for COVID and has not had any sick contacts that she knows of. No other symptoms such as nausea, vomiting, or diarrhea. No urinary symptoms. Nor sore throat. The patient has not been any other medications. Dr. Osborne reported to me that she found the patient to have saturations in the 80s and a heart rate in the one teens to 150s. The patient denies any underlying pulmonary or cardiac issues. No history of DVT. No edema or unilateral pain or enlargement of either leg. No other complaints at this time. Review of Systems Ten Systems: 10 systems reviewed and negative Constitutional: reports: Fatigue Eyes: reports: Reviewed and negative Ears: reports: Reviewed and negative Nose: reports: Reviewed and negative Throat: reports: Reviewed and negative Cardiac: reports: Reviewed and negative Respiratory: reports: Dyspnea GI: reports: Reviewed and negative : reports: Reviewed and negative Skin: reports: Reviewed and negative Musculoskeletal: reports: Reviewed and negative Neurologic: reports: Reviewed and negative Psychiatric: reports: Reviewed and negative Endocrine: reports: Reviewed and negative Immunocompromised: reports: Reviewed and negative PD PAST MEDICAL HISTORY - Past Medical History Cardiovascular: Hypertension Respiratory: Sleep apnea, CPAP use Neuro: None Endocrine/Autoimmune: Type 2 diabetes GI: Ulcerative colitis : Incontinence HEENT: Chronic sinusitis, Macular degeneration Psych: None Musculoskeletal: Osteoarthritis Derm: None - Past Surgical History General: Colonoscopy Ortho: Knee replacement /[employer]: Hysterectomy - Present Medications Home Medications: Ambulatory Orders Medication Instructions Recorded Confirmed Glimepiride [Amaryl] 2 mg PO 0800 11/11/20 11/11/20 Losartan Potassium 25 mg PO 11/11/20 Azithromycin [Zithromax] 0 mg PO DAILY #6 tablet 04/08/21 predniSONE [Deltasone] 60 mg PO DAILY 3 Days #9 tablet 04/08/21 - Allergies Allergies/Adverse Reactions: Allergies Allergy/AdvReac Type Severity Reaction Status Date / Time yonathan AdvReac ulcerative Verified 04/08/21 11:18 colitis - Social History Smoking Status: Former smoker PD ED PE NORMAL - Vitals Vital signs reviewed: Yes - General General: Alert and oriented X 3, No acute distress, Well developed/nourished - HEENT HEENT: Atraumatic, PERRL, EOMI, Moist mucous membranes - Neck Neck: Supple, no meningeal sign - Cardiac Cardiac: RRR, No murmur, Strong equal pulses - Respiratory Respiratory: No respiratory distress, Other (Occasional fine crackles, More prominent on the right) - Abdomen Abdomen: Soft, Non tender, Non distended - Derm Derm: Normal color, Warm and dry, No rash - Extremities Extremities: No deformity, No edema, No calf tenderness / cord - Neuro Neuro: Alert and oriented X 3, project accountant 2-12 intact, Normal speech, Other (Grossly intact) - Psych Psych: Normal mood, Normal affect Results - Vitals Vitals: Vital Signs - 24 hr 04/08/21 04/08/21 04/08/21 11:13 12:18 13:00 Temperature 36.4 C L Heart Rate 112 H 84 Respiratory 18 27 H Rate Blood Pressure 125/57 L 132/76 H O2 Saturation 99 90 L 96 04/08/21 04/08/21 04/08/21 15:00 16:30 17:00 Temperature Heart Rate 91 99 91 Respiratory 29 H 31 H 25 H Rate Blood Pressure 108/63 132/80 H 131/78 H O2 Saturation 95 94 96 Oxygen O2 Source Nasal cannula - EKG (time done) 1146 Rate: Rate (enter#) (98) Rhythm: NSR [place]: Normal Intervals: Prolonged DE QRS: Normal Ischemia: Non specific changes Compare to prior EKG: Old EKG unavailable - Labs Labs: Laboratory Tests 04/08/21 04/08/21 04/08/21 11:30 11:30 11:30 WBC 8.4 RBC 5.42 H Hgb 13.8 Hct 42.5 MCV 78.4 L MCH 25.5 L MCHC 32.5 RDW 15.7 H Plt Count 361 MPV 8.7 Neut # (Auto) 6.9 H Lymph # (Auto) 0.4 L Mora # (Auto) 0.7 Eos # (Auto) 0.3 Baso # (Auto) 0.1 Absolute Nucleated RBC 0.00 Nucleated RBC % 0.0 Sodium 134 L Potassium 4.0 Chloride 96 L Carbon Dioxide 23 Anion Gap 15.0 H BUN 15 Creatinine 0.7 Estimated GFR (MDRD) 81 L Glucose 160 H Calcium 9.4 Iron TIBC % Saturation Transferrin Total Bilirubin 0.9 AST 28 ALT 26 Alkaline Phosphatase 62 Troponin I High Sens B-Natriuretic Peptide 18 Total Protein 7.7 Albumin 3.7 Globulin 4.0 Albumin/Globulin Ratio 0.9 L Lipase 23 Nasal Adenovirus (PCR) Nasal B. parapertussis DNA (PCR) Nasal Coronavir 229E PCR Nasal Coronavir HKU1 PCR Nasal Coronavir NL63 PCR Nasal Coronavir OC43 PCR Nasal Enterovir/Rhinovir PCR Nasal Influenza B PCR Nasal Influenza A PCR Nasal Parainfluen 1 PCR Nasal Parainfluen 2 PCR Nasal Parainfluen 3 PCR Nasal Parainfluen 4 PCR Nasal RSV (PCR) Nasal B.pertussis DNA PCR Nasal C.pneumoniae (PCR) Jama Human Metapneumo PCR Nasal M.pneumoniae (PCR) Nasal SARS-CoV-2 (PCR) 04/08/21 04/08/21 04/08/21 11:30 11:30 11:30 WBC RBC Hgb Hct MCV MCH MCHC RDW Plt Count MPV Neut # (Auto) Lymph # (Auto) Mora # (Auto) Eos # (Auto) Baso # (Auto) Absolute Nucleated RBC Nucleated RBC % Sodium Potassium Chloride Carbon Dioxide Anion Gap BUN Creatinine Estimated GFR (MDRD) Glucose Calcium Iron 33 TIBC 245 L % Saturation 13 L Transferrin 175 L Total Bilirubin AST ALT Alkaline Phosphatase Troponin I High Sens 11.4 B-Natriuretic Peptide Total Protein Albumin Globulin Albumin/Globulin Ratio Lipase Nasal Adenovirus (PCR) NOT DETECTED Nasal B. parapertussis DNA (PCR) NOT DETECTED Nasal Coronavir 229E PCR NOT DETECTED Nasal Coronavir HKU1 PCR NOT DETECTED Nasal Coronavir NL63 PCR NOT DETECTED Nasal Coronavir OC43 PCR NOT DETECTED Nasal Enterovir/Rhinovir PCR NOT DETECTED Nasal Influenza B PCR NOT DETECTED Nasal Influenza A PCR NOT DETECTED Nasal Parainfluen 1 PCR NOT DETECTED Nasal Parainfluen 2 PCR NOT DETECTED Nasal Parainfluen 3 PCR NOT DETECTED Nasal Parainfluen 4 PCR NOT DETECTED Nasal RSV (PCR) NOT DETECTED Nasal B.pertussis DNA PCR NOT DETECTED Nasal C.pneumoniae (PCR) NOT DETECTED Jama Human Metapneumo PCR NOT DETECTED Nasal M.pneumoniae (PCR) NOT DETECTED Nasal SARS-CoV-2 (PCR) NOT DETECTED - Rads (name of study) Chest x-ray Radiology: Final report received, EMP read indepedently, See rad report (Pulmonary edema versus atypical pneumonia) CT angiogram chest Radiology: Final report received, EMP read indepedently, See rad report (No pulmonary embolism; atypical pneumonia worse on right, versus pneumonitis) PD MEDICAL DECISION MAKING - ED course Complexity details: reviewed results, re-evaluated patient, considered differential, d/w patient ED course: The patient actually looked fairly good, but her oxygen saturation was found to be in the upper 80s on room air, which according to her oncologist, Dr. Zuñiga, with whom I later spoke, this was not her usual. The patient was worked up with laboratory studies, which were unremarkable, including a normal white blood cell count. She was initially worked up with a chest x-ray, which showed possibly some pulmonary edema. However, she was then sent for a CTA of the chest, as it was concern for possible PE given her cancer history, and this showed a right-sided atypical pneumonia versus pneumonitis with lesser findings on the left side. I spoke with Dr. Zuñiga again, and after considering the fact that the patient has a normal white blood cell count, minimal cough, no fevers, and prolonged symptoms without a sense of feeling unwell, it is more likely that the patient has a delayed radiation pneumonitis than an atypical pneumonia. The patient was treated with IV Rocephin and oral Zithromax. She preferred to go home and Dr. Zuñiga and I both felt this was reasonable as long as the patient could have some supplemental oxygen. Respiratory therapy worked with Dr. Zuñiga to get proper ordering and the patient was given oxygen to go home with as well as was set up to have [employer] come and visit her at home tonight to bring her more oxygen and do more teaching. The patient was agreeable to this plan. We have discussed the usual indications for return Departure - Departure Disposition: 01 Home, Self Care Clinical Impression: Atypical pneumonia, Radiation pneumonitis Condition: Stable Instructions: ED Pneumonia Adult Prescriptions: predniSONE [Deltasone] 60 mg PO DAILY 3 Days #9 tablet Azithromycin [Zithromax] 0 mg PO DAILY #6 tablet Comments: Your CT scan does not show any blood clots, but does show findings that are most likely due to a delayed radiation pneumonitis, or inflammation of the lung, due to the radiation you had. This is mostly localized to the right lung, but there are some findings on the left, as well. It is possible that this could be an atypical pneumonia, but given that you have had symptoms for a month, and are without fever or an elevated white blood cell count or significant cough, this is much less likely. However, to address this possibility we have started you on antibiotics. Your case has been discussed with your oncologist, who is also looked at your CT results. He feels the best place for you is at home with some supplemental oxygen and he will follow you closely. If you develop worsening shortness of breath despite the antibiotics and supplemental oxygen, then please return to the emergency department for further evaluation. Discharge Date/Time: 04/08/21 17:19
[2021-04-08 17:05] VITALS: BP 131/78
== END 2021-04-08 17:19 | disposition home or self-care (01) ==
LOC: ED 11:06
DX: J70.0 Acute pulmonary manifestations due to radiation (principal); Z20.822 Contact with and (suspected) exposure to COVID-19
CPT/HCPCS: 36415; 71045; 71275; 80053; 83540; 83690; 83880; 84466; 84484; 85025; 87631; 93005; 94761; 96365; 99284; A9270; J7512; Q9967; 0202U

== ENCOUNTER 2021-04-21 10:04 | Outpatient (CLI) | payer MEDICARE ==
[2021-04-21 11:36] VITALS: BP 135/77
--- NOTE | 2021-04-21 11:36 | SLEEP CARE CONSULTATION ---
Information from patient questionnaire entered by Gurdeep French MA. I have reviewed and concur with the information entered by Gurdeep French MA. This document represents the service I personally performed and the decisions made by , Azeb Gonsalves ARNP. History of Present Illness Service Date and Time: 04/21/2021 1004 Previous diagnosis: Moderate, Obstructive Sleep Apnea-Hypopnea Syndrome AHI: 25.4 (in 2003) Reason for follow up: annual (LAST SEEN 08/2018, NEEDS SUPPLIES,) Equipment type: CPAP Equipment obtained from: [employer] (needs supplies to be able to use her device) Mask style: Full face Backup mask available: No (needs supplies) Last cushion change: 2018 Year and Where: 2004 HPI additional information: SEEMA JENKINS was diagnosed to have moderate, AHI 25.4, obstructive sleep apnea-hypopnea syndrome and returned today for CPAP therapy annual follow-up. CPAP Compliance Data - Data Reviewed with Patient Average duration of nightly device use: 20 SECONDS Compliance rate %: 0 Current pressure setting (cmH2O): 10 Humidity settin Heated hose settin Average residual AHI: 0 Average large leak: 0 Compliance data discussion: She has not been able to use her CPAP due to not having mask supplies. She could not get supplies without a visit here but she has been dealing with breast cancer treatments and unable to give it any time. Subjective Missed days of use due to: reports: mask issues (needs supplies), illness, other (CANCER/BREAST) Patient concerns: reports: mask leak noise, dry mouth, nose, throat. denies: aerophagia, mask discomfort, air blowing in eyes, condensation in mask/hose, nasal congestion, epistaxis, other Observed to snore while using device: No Current pressure setting perceived as: comfortable On therapy, patient: denies: drowsiness while driving Initial Excel Sleepiness Scale score: 11 (2021) Allergies and Home Medications Known drug allergies: No Drug allergies reviewed: Yes Home medication list reviewed: Yes (not taking the losartan due to normal blood pressures without it; appt PCP) Allergy and home medication list: Allergies mussels Adverse Reaction (Verified 04/08/21 11:18) ulcerative colitis Review of Systems Review of systems same as previous: No (completed breast cancer treatment Feb 2021) Musculoskeletal: reports: other (BREAST CANCER TREATMENTS, FEB 2021,) Physical Exam Vital signs obtained and entered by: FRANKLIN French Blood Pressure: 135/77 (LEFT, PULSE 80, RESP 18,) Cuff size: wrist Heart Rate: 78 O2 Saturation: 96 (PAPER MASK) Height: 5 ft 2 in Weight: 203 lb Weight change since last visit: 40+ pound loss Body Mass Index: 37.1 BMI Classification: Obese Impression and Plan 1. Obstructive Sleep Apnea-Hypopnea Syndrome, moderat, with poor treatment compliance and good apnea control. On CPAP therapy, the patient has better sleep quality and is more rested overall. She has not got any mask supplies to be able to use her CPAP. She changed insurance who require her to come in for a compliance check. She has not had any supplies since 2018 and her mask has just fallen apart. Patient has a Dreamstation CPAP. Patient has already registered their device for the recall. Patient denies any black particles seen in machine or hoses, any unusual odors coming from device. Patient has not experienced any physical symptoms such as upper airway irritation, headache, skin or eye irritation, asthma, nausea/vomiting, difficulty breathing or chest pain. If patient is not able to sleep due to waking up choking, gasping for air or other respiratory distress that they may decide to continue using it until it is either replaced or repaired. Patient will try to use her device as soon as she is able to get supplies. Patient voiced understanding and agreement with plan. Patient's apnea severity and rationale for treatment to reduce apnea, improve sleep quality and reduce cardiovascular and cerebrovascular events was reviewed. I also reviewed the benefit of consistent device use of CPAP for hypertension and diabetes. Patient has lost about 40 or so pounds with her breast cancer. She was encouraged to continue to try to lose weight. * Continue auto CPAP pressure at 10 cmH2O * Update supplies * Notify me if snoring with mask or feeling that the pressure is too much or too little * Continue to try to lose weight * Call this office if any problems using CPAP * Return for follow up in 1-2 months to recheck compliance once she gets supplies, or sooner if concerns arise Counseling Topics: Spare mask, Weight loss health impact Visit Type: In Office Time Spent with Patient (minutes): 29 Provider Statement: I spent 100% of the Face to Face Visit with the patient with greater than 50% spent counseling the patient and coordination of care.
== END 2021-04-21 10:05 | disposition home or self-care (01) ==
LOC: SC 10:04
PROVIDERS: ATTEND Nurse Practitioner Family
DX: G47.33 Obstructive sleep apnea (adult) (pediatric) (principal); E66.9 Obesity, unspecified; Z68.37 Body mass index [BMI] 37.0-37.9, adult
CPT/HCPCS: 99213; G0463; 99212

== ENCOUNTER 2021-04-28 08:10 | Outpatient (CLI) | payer MEDICARE ==
[2021-04-28 09:27] LABS: CHOL/HDL RATIO 3.9 (<4.4); CHOLESTEROL 238 mg/dL; HDL CHOLESTEROL 61 mg/dL; LDL CHOLESTEROL,CALCULATED 154 mg/dL; LDL/HDL RATIO 2.5 (<4.4); TRIGLYCERIDES 114 mg/dL; VLDL CHOLESTEROL 23 mg/dL
[2021-04-28 12:15] LABS: ESTIMATED AVERAGE GLUCOSE 137 mg/dL (70-100); HEMOGLOBIN A1c% 6.4 % (4.27-6.07)
== END 2021-04-28 08:11 | disposition home or self-care (01) ==
LOC: LAB 08:10
PROVIDERS: ATTEND Family Medicine
DX: E11.9 Type 2 diabetes mellitus without complications (principal)
CPT/HCPCS: 36415; 80061; 83036; 83721

== ENCOUNTER 2021-04-28 11:12 | Outpatient (CLI) | payer MEDICARE ==
--- NOTE | 2021-04-29 11:28 | Mammography Report ---
UNILATERAL LEFT DIGITAL SCREENING MAMMOGRAM 3D/2D: 04/28/2021 CLINICAL: Routine screening. Personal history of right breast cancer. Comparison is made to exams dated: 06/02/2020 specimen, 06/02/2020 localization - [facility], 05/30/2020 breast MRI - [facility], 04/24/2020 ultrasound biopsy, 04/24/2020 mammogram, and 04/16/2020 ultrasound - [facility]. There are scattered fibroglandular elements in left breast. There is a possible developing new 0.7 cm oval equal density asymmetry in the left breast posterior d epth lateral region seen on the craniocaudal view only. No other significant masses or calcifications are seen in the breast. IMPRESSION: INCOMPLETE: NEEDS ADDITIONAL IMAGING EVALUATION The possible developing new 0.7 cm oval equal density asymmetry in the left breast resembles fibrogla ndular tissue and is indeterminate. Additional views with possible ultrasound are recommended. This exam was interpreted at Station ID: [id number]. NOTE: For mammograms, a report in lay terms will be sent to the patient. Approximately 15% of breast malignancies will not be visualized mammographically. In the management of a palpable breast mass, a negative mammogram must not discourage biopsy of a clinically suspicious lesion. Electronically Signed By: Kaushal Armenta M.D. aty/:04/28/2021 16:58:56 copy to: [facility] BI-RADS Category 0: Incomplete 3340F PARENCHYMAL PATTERN: (A) - The breast(s) demonstrate(s) scattered fibroglandular densities. BI-RADS CATEGORY: (0) - 0 Mammo and US [id number] Immediate follow-up LATERALITY: (L)
== END 2021-04-28 11:13 | disposition home or self-care (01) ==
LOC: DI.N 11:12
PROVIDERS: ATTEND Internal Medicine
DX: Z12.31 Encounter for screening mammogram for malignant neoplasm of breast (principal); R92.8 Other abnormal and inconclusive findings on diagnostic imaging of breast; Z85.3 Personal history of malignant neoplasm of breast

== ENCOUNTER 2021-05-02 10:30 | Outpatient (CLI) | payer MEDICARE | END 2021-05-02 23:59 | disposition home or self-care (01) | LOC: LAB.N 10:30 | PROVIDERS: ATTEND Physician Assistant | DX: R43.9 Unspecified disturbances of smell and taste (principal); Z20.822 Contact with and (suspected) exposure to COVID-19 ==

== ENCOUNTER 2021-05-04 13:14 | Outpatient (CLI) | payer MEDICARE | END 2021-05-04 13:15 | disposition home or self-care (01) | LOC: LAB 13:14 | PROVIDERS: ATTEND Physician Assistant | DX: R19.7 Diarrhea, unspecified (principal) | CPT/HCPCS: 81599; 87045; 87427; 87449; 87493 ==

== ENCOUNTER 2021-05-06 11:41 | Outpatient (CLI) | payer MEDICARE ==
--- NOTE | 2021-05-06 12:10 | XRAY Report ---
PROCEDURE: Chest 2 View X-Ray INDICATIONS: DYSPNEA ON EXERTION TECHNIQUE: 2 view(s) of the chest. COMPARISON: Plain films dated 04/08/2021 FINDINGS: Surgical changes and devices: Left-sided cheryl catheter, tip of which is in the upper SVC. Right axil mckenzie/chest wall surgical clips. Lungs and pleura: No pleural effusions or pneumothorax. Decreased, mild diffuse reticulonodular pulm onary opacity. Mediastinum: Mediastinal contours are normal. Heart size is normal. Bones and chest wall: No suspicious bony abnormalities. Soft tissues appear unremarkable. IMPRESSION: Resolving edema/pneumonia. Reviewed by: Carol Pace MD on 05/06/2021 12:08 PM PDT Approved by: Carol Pace MD on 05/06/2021 12:08 PM PDT Station ID: [id number]
== END 2021-05-06 11:42 | disposition home or self-care (01) ==
LOC: DI 11:41
PROVIDERS: ATTEND Family Medicine
DX: J18.9 Pneumonia, unspecified organism (principal)

== ENCOUNTER 2021-12-01 08:00 | Outpatient (CLI) | payer MEDICARE | END 2021-12-01 23:59 | disposition home or self-care (01) | LOC: LAB.N 08:00 | PROVIDERS: ATTEND Physician Assistant | DX: L02.214 Cutaneous abscess of groin (principal) | CPT/HCPCS: 87070; 87205 ==

== ENCOUNTER 2022-01-05 14:11 | Outpatient (CLI) | payer MEDICARE ==
--- NOTE | 2022-01-06 10:33 | Ultrasound Report ---
LIMITED ULTRASOUND OF LEFT BREAST: 01/05/2022 CLINICAL: 6 month follow-up of cysts. Comparison is made to exams dated: 06/15/2021 ultrasound, 06/15/2021 mammogram - [facility], mammogram - [facility], 05/30/2020 breast MRI - [facility], 03/19/2020 mammogram , and 01/22/2019 mammogram - [facility]. Color flow ultrasound of the left breast 3 o'clock region was performed. Guzman scale images of the r eal-time examination were reviewed. There is a stable 1.4 cm x 0.7 cm x 0.8 cm cluster of cysts (previously 1.3 cm x 1.0 cm x 0.8 cm) in the left breast at 3 o'clock posterior depth 8 cm from the nipple. IMPRESSION: PROBABLY BENIGN The 1.4 cm x 0.7 cm x 0.8 cm cluster of cysts in the left breast is probably apocrine metaplasia and is probably benign. A follow-up ultrasound in 6 months is recommended. This exam was interpreted at Station ID: [id number]. Electronically Signed By: Archie Martinez M.D. lc/:01/05/2022 14:47:57 copy to: [facility] Ultrasound BI-RADS: 3 Probably benign BI-RADS CATEGORY: (3) - 3 Ultrasound [id number] 6 month follow-up LATERALITY: (B)
== END 2022-01-05 14:12 | disposition home or self-care (01) ==
LOC: DI 14:11
PROVIDERS: ATTEND Nurse Practitioner Family
DX: R92.8 Other abnormal and inconclusive findings on diagnostic imaging of breast (principal); N60.12 Diffuse cystic mastopathy of left breast

== ENCOUNTER 2022-01-15 10:30 | Outpatient (CLI) | payer MEDICARE ==
--- NOTE | 2022-01-15 11:19 | XRAY Report ---
PROCEDURE: Chest 2 View X-Ray INDICATIONS: ACUTE LOWER RESPRITORY TRACT INFECTION TECHNIQUE: 2 views of the chest were acquired. COMPARISON: None FINDINGS: There is a left-sided Port-A-Cath in place in good position. There are postsurgical changes involving the right breast. Lung volumes are low with vascular crowding. There is some patchy interstitial infiltrate involving the patient's right upper lobe. No pleural effusion is seen. Heart and mediastinal contours appear within normal limits. IMPRESSION: 1. Low lung volumes vascular crowding. 2. Patchy interstitial infiltrate right upper lobe. 3. Prior postsurgical changes right breast and right axillary region. Reviewed by: Conner Zuniga MD on 01/15/2022 11:18 AM PST Approved by: Conner Zuniga MD on 01/15/2022 11:18 AM PST Station ID: [id number]
== END 2022-01-15 10:31 | disposition home or self-care (01) ==
LOC: DI 10:30
PROVIDERS: ATTEND Nurse Practitioner Family
DX: J22 Unspecified acute lower respiratory infection (principal)

== ENCOUNTER 2022-02-22 08:24 | Outpatient (CLI) | payer MEDICARE ==
[2022-02-22 08:41] LABS: BASOPHILS # (AUTO) 0.1 10^3/uL (0.0-0.1); BASOPHILS % (AUTO) 0.9 %; EOSINOPHILS # (AUTO) 0.3 10^3/uL (0.0-0.7); EOSINOPHILS % (AUTO) 4.1 %; HCT - HEMATOCRIT 43.3 % (37.0-47.0); HGB - HEMOGLOBIN 13.6 g/dL (12.0-16.0); LYMPHOCYTES # (AUTO) 1.4 10^3/uL (1.5-3.5); LYMPHOCYTES % (AUTO) 16.9 %; MEAN CORPUSCULAR HEMOGLOBIN 25.5 pg (27.0-31.0); MEAN CORPUSCULAR HGB CONC 31.4 g/dL (32.0-36.0); MEAN CORPUSCULAR VOLUME 81.1 fL (81.0-99.0); MEAN PLATELET VOLUME 9.1 fL (7.9-10.8); MONOCYTES # (AUTO) 0.5 10^3/uL (0.0-1.0); MONOCYTES % (AUTO) 5.9 %; NEUTROPHILS # (AUTO) 5.8 10^3/uL (1.5-6.6); NEUTROPHILS % (AUTO) 71.8 %; PLT - PLATELET COUNT 297 10^3/uL (130-450); RED BLOOD COUNT 5.34 10^6/uL (4.20-5.40); RED CELL DISTRIBUTION WIDTH 15.6 % (12.0-15.0); WHITE BLOOD COUNT 8.1 x10^3/uL (4.8-10.8)
[2022-02-22 09:00] LABS: ALBUMIN 3.9 g/dL (3.2-5.5); ALBUMIN/GLOBULIN RATIO 1.1 (1.0-2.2); ALKALINE PHOSPHATASE 76 IU/L (42-121); ALT ALANINE AMINOTRANSFERASE 27 IU/L (10-60); AST ASPARTATE AMINOTRANSFERASE 20 IU/L (10-42); BILIRUBIN,TOTAL 0.7 mg/dL (0.2-1.0); BUN - BLOOD UREA NITROGEN 22 mg/dL (6-20); CALCIUM 9.1 mg/dL (8.5-10.3); CARBON DIOXIDE - CO2 25 mmol/L (21-32); CHLORIDE 100 mmol/L (101-111); CHOL/HDL RATIO 3.7 (<4.4); CHOLESTEROL 240 mg/dL; CREATININE 0.6 mg/dL (0.4-1.0); GFR - MDRD 96 (>89); GLUCOSE 146 mg/dL (70-100); HDL CHOLESTEROL 65 mg/dL; LDL CHOLESTEROL,CALCULATED 150 mg/dL; LDL/HDL RATIO 2.3 (<4.4); POTASSIUM 4.3 mmol/L (3.5-5.0); SODIUM 134 mmol/L (135-145); TOTAL PROTEIN 7.4 g/dL (6.7-8.2); TRIGLYCERIDES 126 mg/dL; VLDL CHOLESTEROL 25 mg/dL
[2022-02-22 09:10] LABS: THYROID STIMULATING HORMONE 2.82 uIU/mL (0.34-5.60)
[2022-02-22 11:34] LABS: ESTIMATED AVERAGE GLUCOSE 148 mg/dL (70-100); HEMOGLOBIN A1c% 6.8 % (4.27-6.07)
== END 2022-02-22 08:25 | disposition home or self-care (01) ==
LOC: LAB 08:24
PROVIDERS: ATTEND Nurse Practitioner Family
DX: I10 Essential (primary) hypertension (principal); E11.9 Type 2 diabetes mellitus without complications; E78.5 Hyperlipidemia, unspecified
CPT/HCPCS: 36415; 80053; 80061; 83036; 83721; 84443; 85025

== ENCOUNTER 2022-05-19 14:50 | Outpatient (CLI) | payer MEDICARE ==
--- NOTE | 2022-05-19 15:27 | SLEEP CARE CONSULTATION ---
Information from patient questionnaire entered by Julianna Fortune. I have reviewed and concur with the information entered by Julianna Fortune. This document represents the service I personally performed and the decisions made by me, Azeb Gonsalves ARNP. History of Present Illness Service Date and Time: 05/19/2022 1450 Previous diagnosis: Moderate, Obstructive Sleep Apnea-Hypopnea Syndrome AHI: 25.4 (in 2003) Reason for follow up: annual (LAST SEEN 04/2021) Equipment type: CPAP ([employer] Dreamstation, s/u 10/31/2018) Equipment obtained from: [employer] (getting supplies prn) Mask style: Full face Backup mask available: Yes (other masks) Year and Where: 2003 HPI additional information: SEEMA JENKINS was diagnosed to have moderate, AHI 25.4, obstructive sleep apnea-hypopnea syndrome and returned today for CPAP therapy annual follow-up. Sleep Study - Results Year and Where: 2003 CPAP Compliance Data - Data Reviewed with Patient Average duration of nightly device use: 48 minutes Compliance rate %: 0 Current pressure setting (cmH2O): 10 Average residual AHI: 9.9 Average large leak: 40 secs Subjective Missed days of use due to: reports: mask issues, illness (cancer, etc) Patient concerns: reports: mask discomfort, air blowing in eyes, mask leak noise. denies: aerophagia, condensation in mask/hose, nasal congestion, dry mouth, nose, throat, epistaxis Current pressure setting perceived as: comfortable (too high before; better in last month) Initial [place] Sleepiness Scale score: 11 (2021) Current [place]ster Sleepiness Scale score: 14 (05/19/22) Allergies and Home Medications Known drug allergies: No (food-mussels) Drug allergies reviewed: Yes Home medication list reviewed: Yes (no changes) Allergy and home medication list: Allergies mussels Adverse Reaction (Verified 05/18/22 10:23) ulcerative colitis Review of Systems Review of systems same as previous: Yes (no changes) Physical Exam Vital signs obtained and entered by: JULIANNA Galeas MA Blood Pressure: 110/70 (LEFT ARM) Cuff size: long Heart Rate: 89 O2 Saturation: 95 Height: 5 ft 2 in Weight: 227 lb Weight change since last visit: 24 lb gain Body Mass Index: 41.5 BMI Classification: Morbidly Obese Impression and Plan 1. Obstructive Sleep Apnea-Hypopnea Syndrome, moderate, with poor treatment compliance and fair apnea control. On CPAP therapy, the patient has better sleep quality and is more rested overall. Patient states for the last few years she has been dealing with cancer and chemo as well as other health issues. She started having issues with the CPAP mask blowing air around the seal to where she could not deal with it and stopped using it regularly. She has occasionally tried to use it again and until recently had the same issue. She has used it a few times in the last couple of weeks and states the mask leaking has reduced. She states the mask is fitting right and not leaking but she is getting some soreness on her face from the mask. She has lost 40 pounds and gained about 20 pounds back in the interim. She may need a different size mask cushion. I encouraged her to reach out to [facility] if she continues to have mask discomfort. Patient states she has noticed increased symptoms since not being able to regularly use her CPAP and wants to start using it regularly again. Now that the mask is sealing she is going to start using it nightly. I will follow-up with her in 1 to 2 months to check her compliance and see how she is doing with the mask. Patient's apnea severity and rationale for treatment to reduce apnea, improve sleep quality and reduce cardiovascular and cerebrovascular events was reviewed. I also reviewed the benefit of consistent device use of CPAP for hypertension and diabetes. 2. Obesity, unspecified. Currently patients BMI is 41.5. Obesity increases the risk of apnea, CPAP pressure requirements and overall health risks especially cardiovascular and diabetes. Thus patient is advised to lose weight. The patient's CPAP pressure should accommodate some weight loss. * Continue CPAP pressure at 10 cmH2O * Notify me if snoring with mask or feeling that the pressure is too much or too little * Attempt to lose weight * Call this office if any problems using CPAP * Return for follow up in 1-2 months, or sooner if concerns arise Counseling Topics: Spare mask, Weight loss health impact Visit Type: In Office Time Spent with Patient (minutes): 22 Provider Statement: I spent 100% of the Face to Face Visit with the patient with greater than 50% spent counseling the patient and coordination of care.
[2022-05-19 15:39] VITALS: BP 110/70
== END 2022-05-19 14:51 | disposition home or self-care (01) ==
LOC: SC 14:50
PROVIDERS: ATTEND Nurse Practitioner Family
DX: G47.33 Obstructive sleep apnea (adult) (pediatric) (principal); E66.9 Obesity, unspecified; E66.01 Morbid (severe) obesity due to excess calories; Z68.41 Body mass index [BMI] 40.0-44.9, adult
CPT/HCPCS: 99213; G0463; 99212

== ENCOUNTER 2022-06-11 08:37 | Outpatient (CLI) | payer MEDICARE ==
--- NOTE | 2022-06-14 09:16 | Ultrasound Report ---
LIMITED ULTRASOUND OF LEFT BREAST: 06/11/2022 CLINICAL: Short term follow up for the left breast. Comparison is made to exams dated: 06/11/2022 mammogram, 01/05/2022 ultrasound - [facility], 06/15/2021 ultrasound, 06/15/2021 mammogram - [facility], and 04/28/2021 mammogram - [facility]. Color flow and real-time ultrasound of the left breast 3 o'clock region were performed. Guzman scale images of the real-time examination were reviewed. There is a stable 1.2 cm x 0.8 cm x 0.8 cm cluster of cysts in the left breast at 3 o'clock middle de pth 8 cm from the nipple. IMPRESSION: PROBABLY BENIGN The stable 1.2 cm x 0.8 cm x 0.8 cm cluster of cysts in the left breast is likely apocrine metaplasia and is probably benign. Follow-up mammogram and ultrasound in 6 months or a follow-up ultrasound in 6 months are recommended. This exam was interpreted at Station ID: [id number]. Electronically Signed By: Archie Martinez M.D. lc/:06/11/2022 11:02:41 copy to: [facility] Ultrasound BI-RADS: 3 Probably benign BI-RADS CATEGORY: (3) - 3 Mammo and US [id number] 6 month follow-up LATERALITY: (B)
--- NOTE | 2022-06-14 09:16 | Mammography Report ---
UNILATERAL LEFT DIGITAL DIAGNOSTIC MAMMOGRAM 3D/2D: 06/11/2022 CLINICAL: Patient returns for a 6 month follow up of the left breast. Comparison is made to exams dated: 06/15/2021 ultrasound, 06/15/2021 mammogram - [facility], and 04/28 mammogram - [facility]. There are scattered areas of fibroglandular density in the left breast (category b / 25%-50% glandula r tissue). There is a stable 0.7 cm asymmetry in the left breast posterior depth lateral region seen on the cran iocaudal view only. No other significant masses or calcifications are seen in the breast. IMPRESSION: INCOMPLETE: NEEDS ADDITIONAL IMAGING EVALUATION The stable 0.7 cm asymmetry in the left breast is indeterminate. An ultrasound is recommended. This exam was interpreted at Station ID: [id number]. NOTE: For mammograms, a report in lay terms will be sent to the patient. Approximately 15% of breast malignancies will not be visualized mammographically. In the management of a palpable breast mass, a negative mammogram must not discourage biopsy of a clinically suspicious lesion. Electronically Signed By: Archie Martinez M.D. lc/:06/11/2022 10:58:59 copy to: [facility] ACR BI-RADS Category 0: Incomplete 3340F PARENCHYMAL PATTERN: (A) - The breast(s) demonstrate(s) scattered fibroglandular densities. BI-RADS CATEGORY: (0) - 0 Ultrasound [id number] Immediate follow-up LATERALITY: (B)
== END 2022-06-11 08:38 | disposition home or self-care (01) ==
LOC: DI 08:37
PROVIDERS: ATTEND Physician Assistant
DX: C50.919 Malignant neoplasm of unspecified site of unspecified female breast (principal); N60.12 Diffuse cystic mastopathy of left breast

== ENCOUNTER 2022-07-20 10:03 | Outpatient (CLI) | payer MEDICARE ==
[2022-07-20 10:44] VITALS: BP 136/77
--- NOTE | 2022-07-20 10:44 | SLEEP CARE CONSULTATION ---
Information from patient questionnaire entered by Julianna Fortune. I have reviewed and concur with the information entered by Julianna Fortune. This document represents the service I personally performed and the decisions made by , Azeb Gonsalves ARNP. History of Present Illness Service Date and Time: 07/20/2022 1003 Previous diagnosis: Moderate, Obstructive Sleep Apnea-Hypopnea Syndrome AHI: 25.4 (in 2003) Reason for follow up: other (2 MONTH F/U) Equipment type: CPAP ([employer] Dreamstation, s/u 10/31/2018) Equipment obtained from: [employer] (getting supplies prn) Mask style: Full face Backup mask available: Yes Year and Where: 2003 HPI additional information: SEEMA JENKINS was diagnosed to have moderate, AHI 25.4, obstructive sleep apnea-hypopnea syndrome and returned today for CPAP therapy two month follow-up. Sleep Study - Results Year and Where: 2003 CPAP Compliance Data - Data Reviewed with Patient Average duration of nightly device use: 57 MINS 4 SECS Compliance rate %: 1.7 (05/16/22-07/14/22; 58/60 days used) Current pressure setting (cmH2O): 10 Humidity settin Heated hose settin Average residual AHI: 14 Central apnea: 0.1 Obstructive apnea: 1.0 Hypopnea: 12.9 Average large leak: 1 mins 37 secs Subjective Missed days of use due to: reports: other (machine not working, no pressure noted by patient from machine) Patient concerns: reports: other (not working) Current pressure setting perceived as: too low On therapy, patient: reports: sleeping better, awakening more refreshed, being more awake and alert during the day, more rested overall. denies: drowsiness while driving Initial [place] Sleepiness Scale score: 11 (2021) Current [place] Sleepiness Scale score: 19 Allergies and Home Medications Known drug allergies: No (mussels) Drug allergies reviewed: Yes Home medication list reviewed: Yes (no changes) Allergy and home medication list: Allergies mussels Adverse Reaction (Verified 07/19/22 21:14) ulcerative colitis Review of Systems Review of systems same as previous: Yes (no changes) Physical Exam Vital signs obtained and entered by: Azeb Maciel NP Blood Pressure: 136/77 Cuff size: wrist (left) Heart Rate: 71 O2 Saturation: 95 Height: 5 ft 2 in Weight: 225 lb 6.4 oz Body Mass Index: 41.2 BMI Classification: Morbidly Obese Impression and Plan 1. Obstructive Sleep Apnea-Hypopnea Syndrome, moderate, with fair treatment compliance and fair apnea control with elevated residual AHI. On CPAP therapy, the patient has better sleep quality and is more rested overall. She did try to use the CPAP after our last visit but had issues with the machine. Patient states she stopped using the CPAP because it has no air coming out. She states she does not feel rested when using it and the pressure is nonexistent. She would like to try and update her machine if possible because the DreamStation is no longer producing pressure. The patients pressure will be changed to autoCPAP 11 cmH20 for elevation of residual AHI. Patient advised to contact me if pressure change is uncomfortable so that it can be adjusted. Goals for apnea control discussed. Patient's apnea severity and rationale for treatment to reduce apnea, improve sleep quality and reduce cardiovascular and cerebrovascular events was reviewed. I also reviewed the benefit of consistent device use of CPAP for hypertension and diabetes. 2. Obesity, unspecified. Currently patients BMI is 41.2. Obesity increases the risk of apnea, CPAP pressure requirements and overall health risks especially cardiovascular and diabetes. Thus patient is advised to lose weight. * Change auto CPAP pressure to 11 cmH2O * Update/replace machine that is malfunctioning * Notify me if snoring with mask or feeling that the pressure is too much or too little * Attempt to lose weight * Call this office if any problems using CPAP * Return for follow up one month after obtaining new device, or sooner if concerns arise Counseling Topics: Spare mask, Weight loss health impact Prescriptions: Auto CPAP Visit Type: In Office Time Spent with Patient (minutes): 27 Provider Statement: I spent 100% of the Face to Face Visit with the patient with greater than 50% spent counseling the patient and coordination of care.
== END 2022-07-20 10:04 | disposition home or self-care (01) ==
LOC: SC 10:03
PROVIDERS: ATTEND Nurse Practitioner Family
DX: G47.33 Obstructive sleep apnea (adult) (pediatric) (principal); E66.01 Morbid (severe) obesity due to excess calories; Z68.41 Body mass index [BMI] 40.0-44.9, adult
CPT/HCPCS: 99213; G0463; 99212

== ENCOUNTER 2022-08-05 08:56 | Outpatient (CLI) | payer MEDICARE ==
[2022-08-05 09:39] LABS: CHOL/HDL RATIO 2.5 (<4.4); CHOLESTEROL 181 mg/dL; HDL CHOLESTEROL 72 mg/dL; LDL CHOLESTEROL,CALCULATED 89 mg/dL; LDL/HDL RATIO 1.2 (<4.4); TRIGLYCERIDES 100 mg/dL; VLDL CHOLESTEROL 20 mg/dL
[2022-08-05 11:28] LABS: ESTIMATED AVERAGE GLUCOSE 171 mg/dL (70-100); HEMOGLOBIN A1c% 7.6 % (4.27-6.07)
== END 2022-08-05 08:57 | disposition home or self-care (01) ==
LOC: LAB 08:56
PROVIDERS: ATTEND Nurse Practitioner Family
DX: E78.5 Hyperlipidemia, unspecified (principal); E11.9 Type 2 diabetes mellitus without complications
CPT/HCPCS: 36415; 80061; 83036; 83721

== ENCOUNTER 2022-11-08 07:56 | Outpatient (CLI) | payer MEDICARE ==
[2022-11-08 08:12] LABS: BASOPHILS # (AUTO) 0.1 10^3/uL (0.0-0.1); BASOPHILS % (AUTO) 0.6 %; EOSINOPHILS # (AUTO) 0.4 10^3/uL (0.0-0.7); EOSINOPHILS % (AUTO) 4.1 %; HCT - HEMATOCRIT 43.2 % (37.0-47.0); HGB - HEMOGLOBIN 13.8 g/dL (12.0-16.0); LYMPHOCYTES # (AUTO) 1.5 10^3/uL (1.5-3.5); MEAN CORPUSCULAR HEMOGLOBIN 26.3 pg (27.0-31.0); MEAN CORPUSCULAR HGB CONC 31.9 g/dL (32.0-36.0); MEAN CORPUSCULAR VOLUME 82.3 fL (81.0-99.0); MEAN PLATELET VOLUME 9.1 fL (7.9-10.8); MONOCYTES # (AUTO) 0.5 10^3/uL (0.0-1.0); NEUTROPHILS # (AUTO) 6.1 10^3/uL (1.5-6.6); NEUTROPHILS % (AUTO) 70.6 %; PLT - PLATELET COUNT 311 10^3/uL (130-450); RED BLOOD COUNT 5.25 10^6/uL (4.20-5.40); RED CELL DISTRIBUTION WIDTH 15.2 % (12.0-15.0); WHITE BLOOD COUNT 8.6 x10^3/uL (4.8-10.8)
[2022-11-08 08:24] LABS: ALBUMIN 3.9 g/dL (3.2-5.5); ALBUMIN/GLOBULIN RATIO 1.3 (1.0-2.2); BILIRUBIN,TOTAL 0.4 mg/dL (0.2-1.0); CALCIUM 9.3 mg/dL (8.5-10.3); CREATININE 0.7 mg/dL (0.6-1.3); POTASSIUM 4.2 mmol/L (3.5-4.5)
[2022-11-08 10:22] LABS: ESTIMATED AVERAGE GLUCOSE 131 mg/dL (70-100); HEMOGLOBIN A1c% 6.2 % (4.27-6.07)
== END 2022-11-08 07:57 | disposition home or self-care (01) ==
LOC: LAB 07:56
PROVIDERS: ATTEND Nurse Practitioner Family
DX: I10 Essential (primary) hypertension (principal); E11.9 Type 2 diabetes mellitus without complications
CPT/HCPCS: 36415; 80053; 83036; 85025

== ENCOUNTER 2023-01-13 09:16 | Outpatient (CLI) | payer MEDICARE ==
--- NOTE | 2023-01-14 10:44 | Mammography Report ---
UNILATERAL LEFT DIGITAL DIAGNOSTIC MAMMOGRAM 3D/2D: 01/13/2023 CLINICAL: 6 month follow up of left breast. Comparison is made to exams dated: 06/11/2022 mammogram - [facility], 06/15/2021 mammo [facility], 04/28/2021 mammogram, 03/19/2020 mammogram, 01/22/2019 mammogram, and 12/06/2018 mammogram - [facility]. There are scattered areas of fibroglandular density in the left breast (category b / 25%-50% glandula r tissue). There is a 0.7 cm asymmetry in the left breast posterior depth outer region seen on the craniocaudal view only. This finding is less prominent compared to prior mammogram 04/28/2021. No other significant masses or calcifications are seen in the breast. IMPRESSION: INCOMPLETE: NEEDS ADDITIONAL IMAGING EVALUATION Left breast outer posterior depth asymmetry, decreased prominence since 04/28/2021. An ultrasound is r ecommended for further evaluation and is scheduled to immediately follow this examination. This exam was interpreted at Station ID: [id number]. NOTE: For mammograms, a report in lay terms will be sent to the patient. Approximately 15% of breast malignancies will not be visualized mammographically. In the management of a palpable breast mass, a negative mammogram must not discourage biopsy of a clinically suspicious lesion. Electronically Signed By: Kathy Horta M.D., PH.D eb/:01/13/2023 11:25:24 copy to: [facility] ACR BI-RADS Category 0: Incomplete 3340F PARENCHYMAL PATTERN: (A) - The breast(s) demonstrate(s) scattered fibroglandular densities. BI-RADS CATEGORY: (0) - 0 Ultrasound [id number] Immediate follow-up LATERALITY: (B)
--- NOTE | 2023-01-14 10:45 | Ultrasound Report ---
LIMITED ULTRASOUND OF LEFT BREAST: 01/13/2023 CLINICAL: Patient returns for a 6 month follow up of the left breast. Comparison is made to exams dated: 06/11/2022 ultrasound, 06/11/2022 mammogram, 01/05/2022 ultrasound - [facility], and 06/15/2021 ultrasound - [facility]. Color flow ultrasound of the left breast 3 o'clock region was performed. Guzman scale images of the r eal-time examination were reviewed. There is a cluster of microcysts in the left breast at 3 o'clock, 8 cm from the nipple measuring 12 x 8 x 7 mm, previously 12 x 8 x 8 mm on 06/11/2022 and 14 x 8 x 8 mm (remeasured) on 01/05/2022. No vasc ularity is present. IMPRESSION: BENIGN Left breast clustered cysts at 3 o'clock are benign. No mammographic or targeted sonographic evidence of malignancy. Recommend left breast screening mammogram in 1 year. Of note, patient has right mast ectomy. Findings and recommendations were conveyed to the patient during today's evaluation. This exam was interpreted at Station ID: [id number]. Electronically Signed By: Kathy Horta M.D., PH.D eb/:01/13/2023 11:39:20 copy to: [facility] Ultrasound BI-RADS: 2 Benign BI-RADS CATEGORY: (2) - 2 Mammogram [id number] 1 year screening LATERALITY: (B)
== END 2023-01-13 09:17 | disposition home or self-care (01) ==
LOC: DI 09:16
PROVIDERS: ATTEND Internal Medicine
DX: C50.911 Malignant neoplasm of unspecified site of right female breast (principal); N60.12 Diffuse cystic mastopathy of left breast; R92.322 Mammographic fibroglandular density, left breast

== ENCOUNTER 2023-09-06 07:06 | Outpatient (CLI) | payer MEDICARE ==
[2023-09-06 07:54] LABS: THYROID STIMULATING HORMONE 3.21 uIU/mL (0.34-5.60)
[2023-09-06 08:17] LABS: BUN - BLOOD UREA NITROGEN 21 mg/dL (6-20); CALCIUM 9.2 mg/dL (8.5-10.3); CARBON DIOXIDE - CO2 27 mmol/L (21-32); CHLORIDE 105 mmol/L (101-111); CHOL/HDL RATIO 2.5 (<4.4); CHOLESTEROL 151 mg/dL; CREATININE 0.6 mg/dL (0.6-1.3); GFR - MDRD 96 (>89); GLUCOSE 149 mg/dL (74-104); HDL CHOLESTEROL 61 mg/dL; LDL CHOLESTEROL,CALCULATED 71 mg/dL; LDL/HDL RATIO 1.2 (<4.4); POTASSIUM 4.4 mmol/L (3.5-4.5); SODIUM 138 mmol/L (135-145); TRIGLYCERIDES 95 mg/dL; VLDL CHOLESTEROL 19 mg/dL
[2023-09-06 10:02] LABS: ESTIMATED AVERAGE GLUCOSE 148 mg/dL (70-100); HEMOGLOBIN A1c% 6.8 % (4.27-6.07)
== END 2023-09-06 07:07 | disposition home or self-care (01) ==
LOC: LAB 07:06
PROVIDERS: ATTEND Nurse Practitioner Family
DX: E11.65 Type 2 diabetes mellitus with hyperglycemia (principal); E66.01 Morbid (severe) obesity due to excess calories; E78.5 Hyperlipidemia, unspecified
CPT/HCPCS: 36415; 80048; 80061; 83036; 83721; 84443

== ENCOUNTER 2023-09-22 08:00 | Outpatient (CLI) | payer MEDICARE ==
[2023-09-22 13:28] LABS: FECAL OCCULT BLOOD (FIT) POSITIVE (NEGATIVE)
== END 2023-09-22 23:59 | disposition home or self-care (01) ==
LOC: LAB.R 08:00
PROVIDERS: ATTEND Nurse Practitioner Family
DX: K92.1 Melena (principal); R19.4 Change in bowel habit; Z12.11 Encounter for screening for malignant neoplasm of colon
CPT/HCPCS: 82274

== ENCOUNTER 2023-11-21 07:09 | Observation (INO) ==
[2023-11-21 08:13] LABS: BASOPHILS # (AUTO) 0.1 10^3/uL (0.0-0.1); BASOPHILS % (AUTO) 0.8 %; EOSINOPHILS # (AUTO) 0.4 10^3/uL (0.0-0.7); EOSINOPHILS % (AUTO) 3.4 %; HCT - HEMATOCRIT 42.6 % (37.0-47.0); HGB - HEMOGLOBIN 13.6 g/dL (12.0-16.0); LYMPHOCYTES # (AUTO) 1.6 10^3/uL (1.5-3.5); LYMPHOCYTES % (AUTO) 15.2 %; MEAN CORPUSCULAR HEMOGLOBIN 26.1 pg (27.0-31.0); MEAN CORPUSCULAR HGB CONC 31.9 g/dL (32.0-36.0); MEAN CORPUSCULAR VOLUME 81.6 fL (81.0-99.0); MONOCYTES # (AUTO) 0.7 10^3/uL (0.0-1.0); MONOCYTES % (AUTO) 6.2 %; NEUTROPHILS # (AUTO) 7.8 10^3/uL (1.5-6.6); NEUTROPHILS % (AUTO) 74.1 %; PLT - PLATELET COUNT 313 10^3/uL (130-450); RED BLOOD COUNT 5.22 10^6/uL (4.20-5.40); RED CELL DISTRIBUTION WIDTH 15.2 % (12.0-15.0); WHITE BLOOD COUNT 10.5 x10^3/uL (4.8-10.8)
--- NOTE | 2023-11-21 08:15 | ED Physician Documentation ---
PD HPI DYSPNEA Stated complaint Stated Complaint: SOA Chief complaint Chief Complaint: Resp History obtained from History obtained from: Patient Additional information Additional information: Patient is an 83-year-old female who presents to the emergency department complaining of dyspnea. She states has been slightly increasing over the past several days, has been constant since about midnight last night. Has not had similar symptoms previously. She has a history of triple negative breast cancer. She is currently under surveillance. Not undergoing any current chemotherapy. She states that she has a remote history of smoking. Had pneumonitis after radiation for breast cancer. Otherwise does not have any pulmonary history. She denies any cardiac history other than a murmur. No fevers. No chills. No significant cough. No one else has been sick around her. Worse with exertion and any movement. Has not noted any significant leg swelling. No chest pain. No pleuritic chest pain. No history of blood clots or PEs. Not on any hormonal replacement therapy. Review of Systems Constitutional Denies: Fever or Chills Ears, nose, mouth, and throat Denies: Neck pain Cardiovascular Denies: chest pain Respiratory Reports: Cough, SOB at rest and SOB with exertion Gastrointestinal Denies: Abdominal pain, Abdominal distention, Nausea or Vomiting Musculoskeletal Denies: Back pain, Neck pain or Extremity pain Neurological Denies: Headache Meds/Allgy Home Medications Ambulatory Orders Medication Instructions Recorded Confirmed glimepiride 2 mg tablet 3 mg PO 0800 11/11/20 08/15/23 rosuvastatin 5 mg tablet (Crestor) 5 mg PO DAILY 10/13/22 08/15/23 vitamins A,C,H-kyja-egizde 4,296 1 ea PO UD 10/13/22 08/15/23 mcg-226 mg-90 mg capsule (PreserVision AREDS) Allergies Allergies Allergy/AdvReac Type Severity Reaction Status Date / Time mussels AdvReac ulcerative Verified 11/21/23 07:28 colitis [facility] Medical History Medical History (Updated 11/21/23 @ 09:14 by Marvin Mcgill MD) History of urinary incontinence Hx of ulcerative colitis Hx of breast cancer Hx of hyperlipidemia Hx of type 2 diabetes mellitus Surgical History Surgical History (Updated 11/21/23 @ 07:36 by Howard Camargo RN) Hx of breast surgery Hx of hysterectomy Hx of mastectomy Social History Social History (Updated 11/21/23 @ 07:36 by Howard Camargo RN) Smoking Status: Former smoker If you are a former smoker, when did you quit? (Date/Year): 1983 Number of Years Smoked: 20 How many cigarettes a day do you smoke? (20 cigarettes=1 Pk): 20 Second hand tobacco smoke exposure: No Do you dip or chew tobacco?: No Do you vape?: No Patient requests smoking cessation consult: No Initiate information on smoking cessation: No Living arrangement: At home Living Condition: With spouse/s.o. Relationship: Level: Independent Do you feel safe in your home environment?: Yes Suffered physical, verbal, emotional, or financial abuse?: No History of Abuse: No ETOH Use: None Substance Use: denies use POLST Patient has POLST: No Exam Constitutional normal general appearance and no apparent distress HENMT oropharynx normal moist mucous membranes Eyes PERRL Neck/C-Spine visual inspection normal Respiratory breath sounds equal bilaterally and normal respiratory effort Mild wheezing right lower lobe. Cardiovascular normal heart rate noted and regular rhythm noted Gastrointestinal abdomen normal to inspection, abdomen soft to palpation, nontender to palpation and nondistended Genitourinary no CVA tenderness Extremities no deformity no edema Neurology speech normal Psychiatry mental status grossly normal and oriented x3 Skin skin color normal Results Vitals Vitals: Vital Signs - 24 hr 11/21/23 07:28 11/21/23 08:00 11/21/23 08:30 Temperature 36.2 C L Temperature Source Temporal Artery Scan Pulse Rate 97 H 89 96 H Respiratory Rate 22 24 30 H Blood Pressure 163/101 H 135/107 H 153/88 H O2 Saturation 97 91 L 89 L O2 Source Room air Room air Room air Pain Intensity 0 11/21/23 08:45 11/21/23 09:00 11/21/23 10:30 Temperature Temperature Source Pulse Rate 107 H 82 89 Respiratory Rate 32 H 24 18 Blood Pressure 156/97 H 176/105 H O2 Saturation 86 L 91 L 93 O2 Source Room air Room air Room air Pain Intensity Oxygen O2 Source Room air EKG (time done) 0837: EKG releavant findings:: EKG personally interpreted by author of this note. Relevant findings are: Rate: Rate (enter#) (84) Rhythm: NSR QRS: LVH Ischemia: Non specific changes Labs Labs: Laboratory Tests 11/21/23 11/21/23 08:07 08:51 WBC 10.5 RBC 5.22 Hgb 13.6 Hct 42.6 MCV 81.6 MCH 26.1 L MCHC 31.9 L RDW 15.2 H Plt Count 313 MPV 10.0 Neut # (Auto) 7.8 H Lymph # (Auto) 1.6 [place] # (Auto) 0.7 Eos # (Auto) 0.4 Baso # (Auto) 0.1 Absolute Nucleated RBC 0.00 Nucleated RBC % 0.0 Sodium 136 Potassium 4.2 Chloride 104 Carbon Dioxide 24 Anion Gap 8.0 BUN 22 H Creatinine 0.6 Estimated GFR (MDRD) 96 Glucose 150 H Calcium 9.5 Total Bilirubin 0.5 AST 13 ALT 15 Alkaline Phosphatase 70 Troponin I High Sens 18.7 H* B-Natriuretic Peptide 595 H Total Protein 7.4 Albumin 4.1 Globulin 3.3 Albumin/Globulin Ratio 1.2 Lipase < 10 L Nasal Adenovirus (PCR) NOT DETECTED Nasal B. parapertussis DNA (PCR) NOT DETECTED Nasal Coronavir 229E PCR NOT DETECTED Nasal Coronavir HKU1 PCR NOT DETECTED Nasal Coronavir NL63 PCR NOT DETECTED Nasal Coronavir OC43 PCR NOT DETECTED Nasal Enterovir/Rhinovir PCR NOT DETECTED Nasal Influenza B PCR NOT DETECTED Nasal Influenza A PCR NOT DETECTED Nasal Parainfluen 1 PCR NOT DETECTED Nasal Parainfluen 2 PCR NOT DETECTED Nasal Parainfluen 3 PCR NOT DETECTED Nasal Parainfluen 4 PCR NOT DETECTED Nasal RSV (PCR) NOT DETECTED Nasal B.pertussis DNA PCR NOT DETECTED Nasal C.pneumoniae (PCR) NOT DETECTED Jama Human Metapneumo PCR NOT DETECTED Nasal M.pneumoniae (PCR) NOT DETECTED Nasal SARS-CoV-2 (PCR) NOT DETECTED Rads (name of study) cxr: Relevant Findings:: Final report received PD Medical Decision Making ED course Complexity details: reviewed results, considered differential and d/w patient ED course: Patient appears to have a CHF exacerbation. Her chest x-ray is consistent with congestive heart failure. BNP is elevated. She is significantly tachypneic, especially with any movement in bed. Her O2 saturation in bed without moving is approximately 89 to 90% on room air. As soon as she gets up to move, drops down to 86%. Unable to take more than a few steps without feeling short of breath and becoming very tachypneic. Given a dose of IV Lasix. Will place in observation for CHF exacerbation with tachypnea and hypoxia. Respiratory PCR is pending at the time of transfer of care to the hospitalist. Discussed with Dr. Sky, who accepts. This document was made in part using voice recognition software. While efforts are made to proofread this document, sound alike and grammatical errors may occur. Echo 10/2022 - Mild concentric LVH with low normal systolic function, EF 50% visually, despite apical hypokinesis. Left atrium is normal in size. Mild aortic stenosis, peak velocity 2.6 m/s and no regurgitation. Normal right ventricular size and function. Discharge Plan Discharge Patient Disposition: 66 [facility] DC/Xfer Condition: Stable Clinical Impression: Pulmonary edema Qualifiers: Chronicity: acute Qualified Code(s): J81.0 - Acute pulmonary edema Congestive heart failure Qualifiers: Heart failure type: unspecified Heart failure chronicity: unspecified Qualified Code(s): I50.9 - Heart failure, unspecified Interventions: ED Admission Assessment Last Done: 11/21/23 10:50
--- NOTE | 2023-11-21 08:15 | XRAY Report ---
PROCEDURE: XR Chest 1V INDICATIONS: Chest Pain TECHNIQUE: One view of the chest was acquired. COMPARISON: 01/15/2022. FINDINGS: Surgical changes and devices: Right axillary clips. Lungs and pleura: No pleural effusions or pneumothorax. Diffuse airspace consolidation and interstit ial changes consistent with acute pulmonary edema. Mediastinum: Mediastinal contours appear normal. Heart size is normal. Bones and chest wall: No suspicious bony lesions. Overlying soft tissues appear unremarkable. IMPRESSION: Congestive heart failure. Reviewed by: Jaime Boston MD on 11/21/2023 8:13 AM PDT Approved by: Jaime Boston MD on 11/21/2023 8:13 AM PDT Station ID: [id number]
[2023-11-21 08:28] LABS: ALBUMIN 4.1 g/dL (3.2-5.5); ALBUMIN/GLOBULIN RATIO 1.2 (1.0-2.2); ALKALINE PHOSPHATASE 70 IU/L (42-121); ALT ALANINE AMINOTRANSFERASE 15 IU/L (10-60); AST ASPARTATE AMINOTRANSFERASE 13 IU/L (10-42); BILIRUBIN,TOTAL 0.5 mg/dL (0.2-1.0); BUN - BLOOD UREA NITROGEN 22 mg/dL (6-20); CALCIUM 9.5 mg/dL (8.5-10.3); CARBON DIOXIDE - CO2 24 mmol/L (21-32); CHLORIDE 104 mmol/L (101-111); CREATININE 0.6 mg/dL (0.6-1.3); GFR - MDRD 96 (>89); GLUCOSE 150 mg/dL (74-104); LIPASE < 10 U/L (11-82); POTASSIUM 4.2 mmol/L (3.5-4.5); SODIUM 136 mmol/L (135-145); TOTAL PROTEIN 7.4 g/dL (6.4-8.9)
[2023-11-21 08:35] LABS: TROPONIN I HIGH SENSITIVITY 18.7 ng/L (2.3-14.8)
[2023-11-21] MEDS: FUROSEMIDE 20 MG/2 ML VIAL IVP STA (09:04)
[2023-11-21 09:58] LABS: B. PARAPERTUSSIS- RESP PCR PAN NOT DETECTED; B. PERTUSSIS- RESP PCR PANEL NOT DETECTED; C. PNEUMONIAE- RESP PCR PANEL NOT DETECTED; CORONAVIRUS 229E-RESP PCR NOT DETECTED; CORONAVIRUS HKU1-RESP PCR NOT DETECTED; CORONAVIRUS NL63-RESP PCR NOT DETECTED; CORONAVIRUS OC43-RESP PCR NOT DETECTED; HUMAN METAPNEUMOVIRUS NOT DETECTED; INFLUENZA A- RESP PCR PANEL NOT DETECTED; INFLUENZA B - RESP PCR PANEL NOT DETECTED; M. PNEUMONIAE- RESP PCR PANEL NOT DETECTED; PARAINFLUENZA VIRUS 1 NOT DETECTED; PARAINFLUENZA VIRUS 2 NOT DETECTED; PARAINFLUENZA VIRUS 3 NOT DETECTED; PARAINFLUENZA VIRUS 4 NOT DETECTED; RHINOVIRUS/ENTEROVIRUS NOT DETECTED; RSV- RESP PCR PANEL NOT DETECTED; SARS-CoV-2 -RESP PCR PANEL NOT DETECTED
[2023-11-21] MEDS ORDERED: ONDANSETRON 4 MG/2 ML VIAL IVP PRN (12:03)
[2023-11-21] MEDS ORDERED: ONDANSETRON ODT 4 MG TABLET TL PRN (12:03)
[2023-11-21] MEDS ORDERED: oxyCODONE 5 MG TABLET PO PRN (12:03)
[2023-11-21] MEDS ORDERED: SODIUM CHLORIDE FLUSH 0.9% 10 ML SYRINGE IVP PRN (12:03)
[2023-11-21] MEDS: INSULIN LISPRO 300 UNIT/3 ML PEN SUBQ SCH (12:41)
[2023-11-21] MEDS: FUROSEMIDE 20 MG/2 ML VIAL IVP SCH (12:47)
[2023-11-21] MEDS: SODIUM CHLORIDE FLUSH 0.9% 10 ML SYRINGE IVP SCH (13:09)
[2023-11-21] MEDS: LOSARTAN 50 MG TABLET PO SCH (14:19)
--- NOTE | 2023-11-21 15:53 | HISTORY & PHYSICAL EXAMINATION ---
Chief Complaint Chief Complaint Chief Complaint: Acute new onset heart failure History of Present Illness Admitted From Admitted From:: Emergency Department History Obtained From Records Reviewed: yes History obtained from: Patient Exam Limitations: none History of Present Illness HPI Comment/Other: 83-year-old female with a past medical history of hypertension, aortic stenosis, former smoker for 20 years, diabetes,obstructive sleep apnea, breast cancer, rheumatic fever as a child and a family history includes a father with chronic heart failure who at 81 who was admitted due to acute new onset heart failure. Has 3 previous echoes in our medical record system. First was done before chemotherapy and the next one was done after chemotherapy. She initially had normal ejection fractions of 60 to 65%. She then dropped on her second echo at 55%. By the third echo she was at 50% with apical hypokinesis. She also had a new mild aortic sclerosis. The patient reports increased shortness of breath at rest beginning last night. She was then seen at the emergency department for dyspnea at rest. She states she has experienced a steady increase in the shortness of breath with exertion over the last few weeks and she also describes orthopnea and waking up frequently feeling sweaty and clammy for several weeks she notes a cough but denies fever or chills. The patient has a history of radiation therapy approximately 2.5 years ago which caused significant weight loss and night sweats. Due to the weight loss she had stopped taking her losartan. She thinkgs that the subtle lopez started then as well, after radiation. That is became steadily worse. Over the last few weeks orthopnea was added to the lopez. And the night before admission, the dyspnea was at rest. She denies edema, chest pain, palpitations. She denies unilateral leg pain. In the ER Temperature was 36.2. Heart rate 97. Respirations 22. She is 97% saturated on room air. Blood pressure was 163/101. We have noticed that with her stay in the ER she was consistently hypertensive. 153/88. And as high as 176/105. Chest x-ray showed changes of congestive heart failure that were quite severe.. Chemistry panel was normal except for a glucose of 150. First troponin was 18.7. 4 hours later the second troponin was 18.6. BNP was 595. So she is not anemic. And white cell count is normal. She states that her significant other is not her legal partner therefore DPOA discussions will need to involve her brother or her sister. Patient was given Lasix at the emergency department this morning and feels better on getting to med surg. 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 Has an adopted son who lives at [facility] due to a traumatic brain injury for the last 30 years. She also has an adopted daughter who lives in [place]. She says that daughter is very sensitive and very sweet and would not be able to handle the responsibility of being a DPOA. She does have a brother and sister. But she would prefer her partner to him to be the DPOA but has never made it legal. Meds/Allgy Home Medications Ambulatory Orders Medication Instructions Recorded Confirmed rosuvastatin 5 mg tablet (Crestor) 5 mg PO DAILY 10/13/22 11/21/23 vitamins A,C,I-ydpf-xwkqll 4,296 1 ea PO UD 10/13/22 11/21/23 mcg-226 mg-90 mg capsule (PreserVision AREDS) glimepiride 1 mg tablet 3 mg PO DAILY 11/21/23 11/21/23 Allergies Allergies Allergy/AdvReac Type Severity Reaction Status Date / Time mussels AdvReac ulcerative Verified 11/21/23 07:28 colitis [facility] Medical History Medical History (Updated 11/21/23 @ 16:50 by Thalia Sky MD) Rheumatic fever History of urinary incontinence Hx of ulcerative colitis Hx of breast cancer Hx of hyperlipidemia Hx of type 2 diabetes mellitus Surgical History Surgical History (Updated 11/21/23 @ 16:18 by Thalia Sky MD) Status post knee replacement Hx of breast surgery Hx of hysterectomy Hx of mastectomy Family History Family History (Updated 11/21/23 @ 16:34 by Thalia Sky MD) Mother Skin cancer Father Prostate cancer Thyroid cancer Brother CAD (coronary artery disease) Sister Well adult exam Other Breast cancer Chronic heart failure Social History Social History Smoking Status: Former smoker If you are a former smoker, when did you quit? (Date/Year): 1983 Number of Years Smoked: 20 How many cigarettes a day do you smoke? (20 cigarettes=1 Pk): 20 Second hand tobacco smoke exposure: No Do you dip or chew tobacco?: No Do you vape?: No Patient requests smoking cessation consult: No Initiate information on smoking cessation: No Living arrangement: At home Living Condition: With spouse/s.o. Relationship: Level: Independent Do you feel safe in your home environment?: Yes Suffered physical, verbal, emotional, or financial abuse?: No History of Abuse: No ETOH Use: None Substance Use: denies use POLST Patient has POLST: No POLST Status: Full Code Review of Systems Constitutional Reports: Diaphoresis and Night sweats; Denies: Fever or Chills Eyes Reports: Other (macular degeneration) Ears, nose, mouth, and throat Reports: Hearing aids; Denies: Throat swelling Cardiovascular Reports: shortness of breath with exertion and shortness of breath when lying down; Denies: swelling of feet/ankles or Syncope Respiratory Reports: Shortness of breath, Cough, Orthopnea, SOB at rest and SOB with exertion Gastrointestinal Denies: Nausea, Vomiting, Diarrhea, Change in bowel habits or Blood in stool Genitourinary Denies: Painful urination, Urinary frequency, Urinary urgency, Nocturia, Urinary incontinence, Blood in urine or Decreased urine ouput Musculoskeletal Reports: Muscle aches Integumentary/Breast Denies: Skin swelling Neurological Denies: Dizziness or Other (No syncope) Psychiatric Denies: Memory loss Endocrine Reports: Excessive sweating; Denies: Excessive urination Hematologic/Lymphatic Denies: Blood clots or Enlarged lymph nodes Allergic/Immunologic Denies: Hives or Throat swelling Prior Level of Functionality: Completely independent with activities of daily living Exam Constitutional normal general appearance, no apparent distress, no limitations and alert HENMT normocephalic Eyes PERRL, EOMs intact bilaterally and conjunctivae normal Neck/C-Spine visual inspection normal Lymph no lymphedema noted Chest inspection of chest normal Respiratory normal respiratory effort, auscultation abnormal and no use of accessory muscles Inspiratory crackles Cardiovascular normal heart rate noted, regular rhythm noted, murmur noted, no JVD and no edema Aortic Stenosis murmur auscultated Gastrointestinal abdomen normal to inspection, abdomen soft to palpation and nontender to palpation Back/Pelvis spine normal to inspection Extremities normal to inspection Neurology uke driver II-XII intact, no movement abnormality noted, no focal motor deficit noted, speech normal and GCS normal Psychiatry mental status grossly normal, oriented x3, thought process normal, cooperative and affect normal Skin skin color normal Conclusion/Plan Problem List (1) Acute systolic heart failure: Plan: 1. Acute new onset heart failure- Partial diagnosis in this elderly female to be new CHF and aortic stenosis? New CHF from ischemia? New CHF and aortic stenosis? New CHF from uncontrolled hypertension?Cardiology referral for further evaluation and treatment of heart failure, aortic stenosis Plan: I feel like I will be treating her as a combination of aortic stenosis that is worsening plus uncontrolled hypertension. Diurese with Lasix, considering recent dose in ED. 2. Elevated troponins that I think are a type I. I think she has elevation due to acute systolic heart failure and not ischemia.Monitor troponin levels and cardiac status closely 3. Hypertension (essential)- Begin Losartan Potassium 50 mg to lower blood pressure. She is already receiving Lasix today. Tomorrow, if her blood pressure is controlled, I will send her home with losartan and hydrochlorothiazide. 4. Diabetes-Type II. Controlled. Without complications. Without [facility] use of insulin. 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 Her A1c in the last 2 years has been under 7%. Plan Insulin Lispro, A1C 5. Advanced care planning: I have asked the patient to engage with who she wants as DPOA and get that paper work done. She wants to be full code and I will fill out a POLST with her. Lab Results Lab results reviewed: Yes 11/21/23 08:07 11/21/23 08:07 Other Lab Results: Troponin: 18.7 Troponin:18.6 BNP: 595 Diagnostic Imaging Results Diagnostic Imaging Results: positive Final report reviewed Diagnostic Imaging Results Comments: Chest X-ray: Congestive Heart Failure Diffused airway consolidation and interstitial changes consistent with acute pulmonary edema EKG Results EKG Interpreted Independently: No EKG Findings: Sinus rhythm Core Measures Anticipated LOS I expect patient to be DC'd or transferred within 96 hours.: Yes DVT/VTE - Prophylaxis VTE/DVT Device ordered at admit?: Yes
[2023-11-21] MEDS: ACETAMINOPHEN 325 MG TABLET PO PRN (18:14)
[2023-11-22 10:09] LABS: ESTIMATED AVERAGE GLUCOSE 143 mg/dL (70-100); HEMOGLOBIN A1c% 6.6 % (4.27-6.07)
--- NOTE | 2023-11-22 11:32 | PHARMACY PROGRESS NOTE ---
Best Possible Medication History Admit Date and Time: 11/21/23 [id number] Processed by: Pharmacy Medications reviewed in ED?: Yes Medication History completed: Yes Patient Interview: Completed Secondary Source(s): Pharmacy records and Insurance records [facility] Statement: As the person ultimately responsible for medication therapy, providers are able to order a medication from an existing home medication list in [facility] via the "Reconcile Routine" prior to Confirmation of that medication by family support specialist. Such practice is discouraged except when the physician, in their clinical judgment, deems that a medical need exists for a medication without regard to previous use.
--- NOTE | 2023-11-22 14:55 | Discharge Summary ---
Discharge Summary Admit Date: 11/21/23 Discharge Date: 11/22/23 Discharging Provider: carol DIAGNOSES Admission Diagnoses: Acute onset of new heart failure Elevated troponin Hypertension Diabetes type 2 Discharge Diagnoses with Status of Each Condition: Acute onset of new heart failure Elevated troponin Hypertension Diabetes type 2 HPI History of Present Illness: HPI Comment/Other: 83-year-old female with a past medical history of hypertension, aortic stenosis, former smoker for 20 years, diabetes,obstructive sleep apnea, breast cancer, rheumatic fever as a child and a family history includes a father with chronic heart failure who at 81 who was admitted due to acute new onset heart failure. Has 3 previous echoes in our medical record system. First was done before chemotherapy and the next one was done after chemotherapy. She initially had normal ejection fractions of 60 to 65%. She then dropped on her second echo at 55%. By the third echo she was at 50% with apical hypokinesis. She also had a new mild aortic sclerosis. The patient reports increased shortness of breath at rest beginning last night. She was then seen at the emergency department for dyspnea at rest. She states she has experienced a steady increase in the shortness of breath with exertion over the last few weeks and she also describes orthopnea and waking up frequently feeling sweaty and clammy for several weeks she notes a cough but denies fever or chills. The patient has a history of radiation therapy approximately 2.5 years ago which caused significant weight loss and night sweats. Due to the weight loss she had stopped taking her losartan. She thinkgs that the subtle lopez started then as well, after radiation. That is became steadily worse. Over the last few weeks orthopnea was added to the lopez. And the night before admission, the dyspnea was at rest. She denies edema, chest pain, palpitations. She denies unilateral leg pain. In the ER Temperature was 36.2. Heart rate 97. Respirations 22. She is 97% saturated on room air. Blood pressure was 163/101. We have noticed that with her stay in the ER she was consistently hypertensive. 153/88. And as high as 176/105. Chest x-ray showed changes of congestive heart failure that were quite severe.. Chemistry panel was normal except for a glucose of 150. First troponin was 18.7. 4 hours later the second troponin was 18.6. BNP was 595. So she is not anemic. And white cell count is normal. She states that her significant other is not her legal partner therefore DPOA discussions will need to involve her brother or her sister. Patient was given Lasix at the emergency department this morning and feels better on getting to med surg. 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 Has an adopted son who lives at [facility] due to a traumatic brain injury for the last 30 years. She also has an adopted daughter who lives in [place]. She says that daughter is very sensitive and very sweet and would not be able to handle the responsibility of being a DPOA. She does have a brother and sister. But she would prefer her partner to him to be the DPOA but has never made it legal. HOSPITAL COURSE Hospital Course: Patient was started on losartan and Lasix for new diagnosis of heart failure and essential hypertension.. Heart failure most likely secondary to radiation therapy due to her breast cancer. Patient Tested for O2 desaturation during exertion. Patient maintained greater than 92% O2 sats. Cardiac Echo demonstrated severe LV diastolic function. EF indicated to be 20%- 25% Patient was also started on a statin for cardiovascular health. Patient to follow-up with cardiology and oncology. Patient was discharged stable condition. ALLERGIES Allergies Allergy/AdvReac Type Severity Reaction Status Date / Time mussels AdvReac ulcerative Verified 11/21/23 07:28 colitis MEDICATIONS Ambulatory Orders Medication Instructions Recorded Confirmed rosuvastatin 5 mg tablet (Crestor) 5 mg PO DAILY 10/13/22 11/21/23 glimepiride 1 mg tablet 3 mg PO DAILY 11/21/23 11/21/23 acetaminophen 325 mg tablet 650 mg (2 x 325 mg) PO Q4HR PRN 11/22/23 Pain 1 to 4, or Fever #30 tabs furosemide 20 mg tablet (Lasix) 20 mg PO DAILY #30 tabs 11/22/23 losartan 50 mg tablet 50 mg PO DAILY #30 tabs 11/22/23 ondansetron 4 mg disintegrating 4 mg translingual Q6HR PRN Nausea 11/22/23 tablet / Vomiting #30 tabs PHYSICAL EXAM AT DISCHARGE General Appearance: positive No acute distress and Alert Eyes Bilateral: positive Normal inspection ENT: positive ENT inspection nml and Pharynx nml Neck: positive Nml inspection and Trachea midline Respiratory: positive Chest non-tender and No respiratory distress Cardiovascular: positive Regular rate & rhythm, No murmur and No gallop Abdomen: positive Non-tender, Nml bowel sounds and No distention Skin: positive Color nml, No rash and Warm Extremities: positive Non-tender, Full ROM and Nml appearance Neurologic/Psychiatric: positive Oriented x3 and CN's nml (2-12) LABS 11/21/23 08:07 11/21/23 08:07 DIAGNOSTIC IMAGING Diagnostic Imaging Results: Final report reviewed QUALITY (Female Hip Fx Only) Was patient sent home on osteoporosis medication?: No (Cardiology, pulmonology) TIME SPENT Time Spent in Discharge (Minutes): 35 Discharge Plan Discharge Patient Disposition: Home, Self Care Condition: Stable Medically Cleared Date:: 11/22/23 Prescriptions: New acetaminophen 325 mg Tablet 650 mg PO Q4HR PRN (Reason: Pain 1 to 4, or Fever) Qty: 30 0RF losartan 50 mg Tablet 50 mg PO DAILY Qty: 30 0RF ondansetron 4 mg Tablet,Disintegrating 4 mg translingual Q6HR PRN (Reason: Nausea / Vomiting) Qty: 30 0RF furosemide [Lasix] 20 mg tablet 20 mg PO DAILY Qty: 30 2RF Continued rosuvastatin [Crestor] 5 MG tablet 5 mg PO DAILY glimepiride 1 mg tablet 3 mg PO DAILY Discontinued acetaminophen 500 mg tablet 1,000 mg PO Q6H PRN (Reason: pain) Patient Comments: for frozen shoulder pain cetirizine [Allergy Relief (cetirizine)] 10 mg tablet 10 mg PO DAILY PRN (Reason: allergy symptoms) Patient Comments: PRN itching (started taking 2 days ago) Activity Restrictions/Additional Instructions: no restriction Diet: Cardiac Health Concerns: please follow up with your oncologist and how radiation will impact for cadiac and pulmonary system Plan of Treatment: cardiology follow up oncology follow up continue losartan and hydrochlorothiazide for htn Print Language: Vietnamese Patient Instructions: Edema Pulmonary, Heart Failure, Heart Failure Congestive Ch Stand Alone Forms: PCP List Follow-up Care: Ana Cristina Marinelli ARNP [Primary Care Provider] -
[2023-11-22 15:56] VITALS: O2SAT 96
== END 2023-11-22 17:51 | disposition home or self-care (01) ==
LOC: ED 07:09 → MS2 10:50 → INTOOBSV 11:18
PROVIDERS: ADMIT Specialist; ATTEND Specialist
DX: E78.5 Hyperlipidemia, unspecified; Z79.84 Long term (current) use of oral hypoglycemic drugs; I50.21 Acute systolic (congestive) heart failure; T45.1X5A Adverse effect of antineoplastic and immunosuppressive drugs, initial encounter; I35.8 Other nonrheumatic aortic valve disorders; I35.0 Nonrheumatic aortic (valve) stenosis; E11.9 Type 2 diabetes mellitus without complications; Z85.3 Personal history of malignant neoplasm of breast; G47.33 Obstructive sleep apnea (adult) (pediatric); I11.0 Hypertensive heart disease with heart failure; Z87.891 Personal history of nicotine dependence; Z92.3 Personal history of irradiation; G62.0 Drug-induced polyneuropathy; R79.89 Other specified abnormal findings of blood chemistry